=== PATIENT | male | born 1955 | race Caucasian/White ===

== ENCOUNTER 2016-07-23 14:00 | Inpatient (IN) | payer MEDICARE ==
[~2016-07-23] VITALS: Ht 182.9 cm; Wt 93.0 kg
--- NOTE | ~2016-07-23 | OR ---
PATIENT'S NAME: CAILIN CARRASCO [facility] AGE: 61 Y [address] ROOM: [place] [address] LOCATION: GPCU ADMIT DATE: 07/23/2016 OR/Procedure Report DISCHARGE DATE: FAMILY PHYSICIAN: MAXIM HAMPTON MD ATTENDING PHYSICIAN: HERNANDEZ MARTE SURGEON: Kaz Pearson MD ELECTRONIC MASKING SYSTEM OPERATOR: Hailey Berger RN DATE OF PROCEDURE: 07/29/2016 PROCEDURE: Right internal jugular vein, a 12.5-Comoran hemodialysis catheter placement. INDICATION FOR PROCEDURE: Need for hemodialysis secondary to renal failure and glomerulonephritis. PREOPERATIVE DIAGNOSES: 1. Acute on chronic kidney disease. 2. Systemic lupus erythematosus. 3. Type 2 diabetes. 4. Hypertension. POSTOPERATIVE DIAGNOSES: 1. Acute on chronic kidney disease. 2. Systemic lupus erythematosus. 3. Type 2 diabetes. 4. Hypertension. COMPLICATIONS: None noted. ESTIMATED BLOOD LOSS: 10 mL. CONSENT: Informed consent was obtained through a design engineer with Mr. Carrasco. Discussion of risks, benefits, alternatives did occur, the patient stated his understanding through the internal communications specialist and agreed for me to proceed. PROCEDURE IN DETAIL: Utilizing strict neutropenic precautions, the patient was placed in Trendelenburg position. Sterile prep with ChloraPrep x2 to the right neck. Sterile full-body drape, sterile gown, sterile gloves used. Surgical mask and cap worn at all times. Under sterile real-time ultrasound guidance, a 25-gauge needle was used to inject lidocaine subcutaneous tissues of the right neck. Utilizing 16-gauge needle, the right internal jugular vein was cannulated with first attempt under ultrasound guidance, nonpulsatile blood flow, dark blood aspirated, over a wire a 12.5-Comoran hemodialysis catheter was inserted to 16 cm without difficulty. Wire and needle were removed intact. Catheter sutured in place. Sterile occlusive Tegaderm dressing was applied. Stat portable chest x-ray is ordered postprocedure. PATIENT'S NAME: CAILIN CARRASCO [facility] AGE: 61 Y [address] ROOM: [place] [address] LOCATION: GPCU ADMIT DATE: 07/23/2016 OR/Procedure Report DISCHARGE DATE: FAMILY PHYSICIAN: MAXIM HAMPTON MD ATTENDING PHYSICIAN: HERNANDEZ MARTE Mr. Carrasco tolerated the procedure well. MD JUAN ANTUNEZ/fausto /[id number] d: 07/29/16 2240 t: 08/10/16 [facility], OPERATIVE SUMMARY
--- NOTE | ~2016-07-23 | ECHO ---
Transthoracic Echocardiography Report (TTE) Demographics Patient Name CAILIN CARRASCO Date of Study 07/24/2016 Patient Number [id number] Visit Number [id number] Date of 1955 Room Number G6303 Gender Male Number Age 61 year(s) Referring [facility] Food And Beverage Cashier Lexie Bella RDCS, Physician Son RVT Physician Interpreting Amador Martel MD Gambling Monitor Physician Supervising Ordering [facility] Son [place]/MLP Physician Nurse Stress Death Surveys Coder Conclusions Contractility Score Summary Normal Left Ventricular contractility was noted. Summary The estimated left ventricular ejection fraction is 60-65%. Mild concentric left ventricular hypertrophy. Diastolic assessment reveals Grade I diastolic dysfunction. The left atrium is moderately dilated by LA volume index measurement. Small global pericardial effusion. Procedure Type of Study TTE procedure:2D Echocardiogram. Procedure Date Date: 07/24/2016 Start: 09:33 AM Study Location: Inpatient Portable Technical Quality: Adequate visualization Indications:Pericarditis. Appropriate Use Criteria: 9 Patient Status: Routine HR: 98 bpm BP: 161/55 mmHg M-Mode/2D Measurements LV Diastolic Dimension: 4.35 cm LV Systolic Dimension: 2.73 cm LV Septum Diastolic: 1.13 cm LV PW Diastolic: 1.07 cm Cardiac Output: 6.81 l/min LA Dimension: 3.8 cm Post Pericard Effusion: 0.6 cm LVOT: 2.2 cm LVOT VTI: 18.3 cm RV Base: 3.13 cm LV Stroke volume: 69.53 ml RV Length: 7.03 cm TAPSE: 2.47 cm TDI-S': 13.7 cm/s Doppler Measurements AV Peak Velocity: 1.26 m/s MV Peak E-Wave: 0.72 m/s AV Peak Gradient: 6.35 mmHg MV Peak A-Wave: 1.16 m/s AV Mean Gradient: 4 mmHg MV E/A Ratio: 0.62 LVOT Peak Velocity: 1.02 m/s MV P1/2t: 88 msec TR Gradient:27.25 mmHg PV Peak Velocity: 1.42 m/s Estimated RAP:5 mmHg PV Peak Gradient: 8.07 mmHg Estimated RVSP: 32 mmHg Estimated PASP: 32.25 mmHg E' Septal Velocity: 0.06 m/s A' Septal Velocity: 0.13 m/s E' Lateral Velocity: 0.07 m/s A' Lateral Velocity: 0.19 m/s Findings Left Ventricle Mild concentric left ventricular hypertrophy. Diastolic assessment reveals Grade I diastolic dysfunction. Right Ventricle Normal right ventricle structure and function. Left Atrium Normal left atrial size. Right Atrium Normal right atrial size. Mitral Valve Trivial mitral regurgitation by color Doppler. Aortic Valve Normal aortic valve structure and function. Tricuspid Valve Trivial tricuspid regurgitation by color Doppler. Pulmonic Valve Normal pulmonic valve structure and function. Pericardial Effusion Trivial posterior pericardial effusion. Miscellaneous Visualized portions of the aortic root and ascending aorta appear normal in size. Pleural Effusion No evidence of pleural effusion. Contractility Score LV regional wall motion:(0-Non visualized 1-Normal 2-Hypokinesis 3-Akinesis 4-Dyskinesis 5-Aneurysm) Signature dtt: Delonte English (cardio) dtd: 07/24/16 0933 Physician Self Edit
--- NOTE | ~2016-07-23 | HP ---
PATIENT'S NAME: CAILIN CARRASCO [facility] AGE: 61 Y [address] ROOM: [address] [place], [place] [address] LOCATION: [facility] ADMIT DATE: 07/23/2016 History & Physical DISCHARGE DATE: FAMILY PHYSICIAN: PHYSICIAN, UNKNOWN ATTENDING PHYSICIAN: HERNANDEZ MARTE DATE OF SERVICE: CHIEF COMPLAINT: NANCY, intractable nausea, vomiting, and diarrhea. HISTORY OF PRESENT ILLNESS: This is a 61-year-old male with history of lupus in the remote past, chronic kidney disease, diabetes type 2, who presents from [facility] as a transfer after he was admitted there yesterday with complaints of intractable nausea, vomiting, and diarrhea for over 24 hours and was noted to have a creatinine of 4.9 and was subsequently admitted. The patient was treated symptomatically for volume depletion with IV fluids and had a CAT scan of the abdomen done, which was nonspecific for acute findings. The patient upon transfer today had a creatinine of 4.1. The patient is hearing impaired since childhood. He recently moved to [place] from [place] about 3 months ago after he retired. The patient tells me that he is aware of having some type of chronic kidney disease, but does not know specifically what type it was, but he remembers someone telling him about possibly getting a kidney biopsy a few years ago and that is the last he has actually heard of from that standpoint. The patient also reports to me that he was diagnosed with lupus in the upon presentation with what sounds like acute pericarditis, requiring lengthy hospital stay at that time. The patient since then had been on and off prednisone therapy and last time he was on prednisone for treatment was in the . The patient today on my evaluation states that the nausea, vomiting, and diarrhea are better; however, he continues to have chest discomfort on the left side of his chest, it worsened with inspiration. He tells me that symptoms he is feeling right now are similar to when he had his episode of pericarditis at the time of his lupus diagnosis in the . The patient, however, denies shortness of breath, dizziness, or lightheadedness. Denies any fevers, chills, or sick contacts. PAST MEDICAL HISTORY: Type 2 diabetes, chronic kidney disease, history of lupus, and hypertension. SOCIAL HISTORY: The patient moved from [place] to [place] over Thanksgiving last year. Denies any history of alcohol, drug, or tobacco use. FAMILY HISTORY: The patient has history of high blood pressure in both parents. PATIENT'S NAME: CAILIN CARRASCO [facility] AGE: 61 Y [address] ROOM: [address] [place], [place] [address] LOCATION: [facility] ADMIT DATE: 07/23/2016 History & Physical DISCHARGE DATE: FAMILY PHYSICIAN: PHYSICIAN, UNKNOWN ATTENDING PHYSICIAN: HERNANDEZ MARTE REVIEW OF SYSTEMS: A 10-point review of systems was conducted with the help of a video interior design instructor and were all negative except as mentioned in the HPI. PHYSICAL EXAMINATION: VITAL SIGNS: Blood pressure 171/99, pulse 86, respiratory rate 18, and saturating 98% on room air. GENERAL: The patient suffers from deafness, but is awake, alert, and oriented x3. Good spirits and very pleasant. HEAD: Normocephalic and atraumatic. NECK: No JVD. Supple. EENT: Dry mucous membranes. No scleral icterus or conjunctival pallor noted. SKIN: Without lesions or rash. CHEST: Clear to auscultation bilaterally. HEART: S1 and S2. Regular rate and rhythm. ABDOMEN: Soft, nontender, and nondistended. EXTREMITIES: Without edema. NEURO: Grossly nonfocal. SIGNIFICANT LABS: Creatinine 4.1, baseline unknown. ASSESSMENT AND PLAN: 1. Acute kidney injury on chronic kidney disease of unknown stage. The patient known to have a history of lupus and is also diabetic from history, suggestive that that patient has some form of chronic kidney disease. The acute component is perhaps the patient's gastrointestinal symptoms of nausea, vomiting, and diarrhea for the past 2 days. Continue with IV fluids for volume replacement and monitor I's and O's closely and also monitor renal function. I have asked for Nephrology for consultation. The patient seems to have a complicated history of kidney disease in the setting of history of lupus. 2. Chest pain, sharp in nature, left-sided worsened by inspiration. Denies any shortness of breath, but does report that this pain is similar to what he felt back in the when he was diagnosed with pericarditis and lupus shortly following that. At this time, we will get a 12-lead EKG and get an echocardiogram. We will hold off treating with NSAIDs for the pain he has in the setting of acute kidney injury. 3. Type 2 diabetes. We will hold the patient's oral hypoglycemic which include glipizide and metformin. We will use sliding scale insulin and Accu-Cheks at this time. Also working on getting records from care providers in [place]. 4. Hypertension. Continue amlodipine. 5. History of lupus. Has been on prednisone in the past. The last time he was on it, per his report, was back in the . PATIENT'S NAME: CAILIN CARRASCO [facility] AGE: 61 Y [address] ROOM: [place] [address] LOCATION: [facility] ADMIT DATE: 07/23/2016 History & Physical DISCHARGE DATE: FAMILY PHYSICIAN: PHYSICIAN, UNKNOWN ATTENDING PHYSICIAN: HERNANDEZ MARTE 6. Deep venous thrombosis prophylaxis. We will use subcu heparin. HERNANDEZ MARTE MD BG/modl /[id number] D: T: 659 HISTORY & PHYSICAL
--- NOTE | ~2016-07-23 | CON ---
PATIENT'S NAME: CAILIN CARRASCO [facility] AGE: 61 Y [address] ROOM: [address] [place], [place] [address] LOCATION: GPCU ADMIT DATE: 07/23/2016 Consultation DISCHARGE DATE: FAMILY PHYSICIAN: PHYSICIAN, UNKNOWN ATTENDING PHYSICIAN: HERNANDEZ MARTE DATE OF CONSULTATION: 07/23/2016 REFERRING PHYSICIAN: CODY BINGHAM REASON FOR CONSULTATION: NANCY versus NANCY on CKD. HISTORY OF PRESENT ILLNESS: A 61-year-old male patient with history of hypertension, type 2 diabetes, lupus (diagnosed in 1979 with pericarditis), now on no immunosuppressive regimen, recently moved to [place], [place] from [place], [place], admitted to an outside hospital with diarrhea and flu-like symptoms for the last couple of days. Creatinine on admission was 4.9, improved to 4.1 subsequently with IV hydration. The patient was subsequently transferred to our hospital for further management and care. The patient is deaf and dumb, and it is difficult to get adequate history from him. His friend, who was present at the bedside, helped me to communicate. The patient has no other past medical record at this point, however, used to follow at the [facility] in [place]. We are trying to contact them to get a detailed past medical history. However, as far as we know that in 1979, he was diagnosed with lupus after having pericarditis, and he was on immunosuppression medication for long time. More recently, he was on prednisone, but which has been stopped a few years ago. However, when he went to [place], his urinalysis showed 3+ protein and packed RBC, and on further interrogation, he mentioned that there was a plan for kidney biopsy a few years ago; however, he never got it done. He denied any fever, chills, or rigor. Denied any shortness of breath, nausea, or vomiting. He has a chest pain on the left precordial area, which is almost similar to the pain, which he has experienced in 1980s. Currently, he is retired, but his habit is dancing, and he is otherwise physically fit and has no other distress. REVIEW OF SYSTEMS: GENERAL: No fever. No chills or rigor. HEENT: No sore throat. No sinus congestion. CVS: Complained of chest pain on the left precordium. No exertional shortness of breath. No history of palpitation. RESPIRATORY: No shortness of breath. No cough. No wheezing. GENITOURINARY: No pain with urination. No increased frequency. No nocturia. GASTROINTESTINAL: No abdominal pain. No abdominal distention. No nausea or vomiting. NEUROLOGIC: No weakness. No seizures. SKIN: No rash. No itching. ALLERGIES: No seasonal allergy. No hayfever. ENDOCRINE: No heat intolerance. No cold intolerance. PSYCHIATRIC: No sadness. No crying spells. No history of panic attack. PATIENT'S NAME: CAILIN CARRASCO [facility] AGE: 61 Y [address] ROOM: [place] [address] LOCATION: GPCU ADMIT DATE: 07/23/2016 Consultation DISCHARGE DATE: FAMILY PHYSICIAN: PHYSICIAN, UNKNOWN ATTENDING PHYSICIAN: HERNANDEZ MARTE PHYSICAL EXAMINATION: VITAL SIGNS: Blood pressure is 170/90s, pulse 85, respiratory rate 16, temperature 97.8, saturating at 96% on room air. GENERAL: Not in apparent distress. HEAD: Moist mucous membranes. Bilateral PERRLA, EOMI. NECK: No JVD, thyromegaly or lymphadenopathy. CVS: S1 and S2 normal, regular rate and rhythm. No murmur, rub, gallop. CHEST: Bilateral air entry equal. No wheeze or rales. ABDOMEN: Soft, nontender, nondistended. Bowel sounds present. EXTREMITIES: No cyanosis, clubbing, jaundice. No dependent edema. MUSCULOSKELETAL: No limitation of range of motion. SKIN: No pallor, cyanosis, icterus. NEUROLOGIC: Alert, deaf, and dumb. Could communicate via the friend. PAST MEDICAL HISTORY: 1. Hypertension. 2. Type 2 diabetes. 3. Lupus, diagnosed in . 4. Proteinuria and hematuria. PAST SURGICAL HISTORY: Unknown at this point. SOCIAL HISTORY: Retired, nonsmoker, nonalcoholic. No IV drug abuse. Lives in [place], [place] at this point. Recently moved from [place]. FAMILY HISTORY: Unknown at this point. LABORATORY DATA: Creatinine from outside hospital was 4.9, improved to 4.1 as mentioned above after hydration; BUN is 55. Urinalysis shows 3+ protein and packed rbc. Labs here done in our hospital is still pending. We will await for the further results. ASSESSMENT AND PLAN: 1. Acute kidney injury versus acute kidney injury on chronic kidney disease. Although no history of chronic kidney disease or unknown baseline renal function, but plan for possible kidney biopsy, probably the patient has some chronic kidney disease at baseline. We will plan to continue gentle hydration at this point with 1 L of normal saline bolus, followed by 150 mL/h. We will send urinalysis, urine lytes, and urine protein creatinine ratio. Continue conservative management for now. No nephrotoxins including NSAIDs or contrast media. Maintain hemodynamic stability. We will keep the MAP more than 65. PATIENT'S NAME: CAILIN CARRASCO [facility] AGE: 61 Y [address] ROOM: [address] [address] LOCATION: GPCU ADMIT DATE: 07/23/2016 Consultation DISCHARGE DATE: FAMILY PHYSICIAN: PHYSICIAN, UNKNOWN ATTENDING PHYSICIAN: HERNANDEZ MARTE 2. Proteinuria and hematuria. Could be secondary to lupus versus diabetes, although at outside hospital, A1c was less than 6 and has no history of diabetic retinopathy in the past. We are sending serologic tests including LULÚ, dsDNA, anti-Diaz level along with ESR, CRP, and complement levels. We will also check urine microscopy for RBC casts and dysmorphic RBCs. The patient may need a renal biopsy for further diagnosis and confirmation in the next few days. 3. Chest pain. Possible query pericarditis. The patient is not uncomfortable at this point, however, mentioned that his chest pain is similar to what he has experienced in 1980s. We will do an EKG, cardiac enzymes, and echo, and we will defer the management as per the primary team. 4. Type 2 diabetes. The patient was noted to be on metformin, however, with acute kidney injury versus acute kidney injury on chronic kidney disease, we would hold metformin as this agent may cause lactic acidosis with reduced renal clearance. May use insulin. We will defer again to the primary team for further management. 5. Hypertension. BP above the acceptable range, systolic blood pressures often in the 170s. We may restart amlodipine for now; however, we should avoid CLINT, ARB, and Aldactone. The patient appears to be slightly volume depleted. We are hydrating at this point. No diuretic for now. 6. We will order for Ann placement and strict intake and output monitoring, daily standing weight, renal panel, and CBC to be sent now and should be monitored daily in a.m. Thanks for allowing me to participate in this patient's care. We will closely monitor the patient's progress along with you. ABHISEKH MAYRA BINGHAM MD /jaylonl /[id number] d: 07/23/165 t: 07/26/16 1513, CONSULTATION REPORT
--- NOTE | ~2016-07-23 | DS ---
[facility] AGE: 61 Y [address] ROOM: [address] [place], [place] [address] LOCATION: GPCU ADMIT DATE: 07/23/2016 Discharge Summary DISCHARGE DATE: 08/11/2016 FAMILY PHYSICIAN: Suzi Hanley MD ATTENDING PHYSICIAN: Son Blanc PRINCIPAL DISCHARGE DIAGNOSIS: Systemic lupus erythematosus exacerbation. SECONDARY DIAGNOSIS: 1. Rapidly progressive glomerulonephritis, secondary to lupus nephritis, class IV, and diabetic neuropathy. 2. Diabetes mellitus, type 2, poorly-controlled, secondary to steroid therapy. 3. Sjnlnd-rm-bhtigvu disease. 4. Hypertension. 5. Pericardial effusion. 6. Complete deafness, requiring sign bookstore clerk, status post mumps at age 7. CONSULTATIONS: Dr. Garces of Nephrology. PROCEDURE: 1. Tunneled dialysis catheter in the right upper chest on August 09, 2016. 2. Right IJ dialysis catheter, on 07/29/2016. 3. Echocardiogram, 07/24/2016, brief summary of findings:. a. EF estimated at 60% to 65%. b. Mild concentric left ventricular hypertrophy. c. Grade 1 diastolic dysfunction. d. Moderately dilated left atrium. e. Small global pericardial effusion. 4. Left kidney core needle biopsy on 07/25/2016. 5. Plasmapheresis on 08/02/2016 and 08/04/2016:. a. On 08/02/2016, x6 units of FFP. b. On 08/04/2016, 4 units of FFP. BRIEF HISTORY: Mr. Carrasco is a 61-year-old -Tongan gentleman with a history of hypertension, diabetes mellitus type 2, and lupus, which was diagnosed in 1979 with an episode of pericarditis. At the time of admission, he was on no immunosuppressive regimen. His prednisone was stopped a few years ago. He presented to [facility] in [place] with diarrhea and flu-like symptoms over the couple of days and on admission his creatinine was 4.9. He was transferred to [facility] for further evaluation and management. The patient is completely deaf and does not speak. We have used a bookstore clerk via video while he has been here and is working relatively well, also, at times, PATIENT'S NAME: [facility] AGE: 61 Y [address] ROOM: [address] [place], [place] [address] LOCATION: GPCU ADMIT DATE: 07/23/2016 Discharge Summary DISCHARGE DATE: 08/11/2016 FAMILY PHYSICIAN: Suzi Hanley MD ATTENDING PHYSICIAN: Son Blanc he communicates with [employer], and that has worked well. The patient was admitted with acute kidney injury superimposed on chronic kidney disease; although, the baseline renal function has not been apparent. Because of his kidney injury, his oral hypoglycemics were held at the time of admission. His blood pressure was elevated. His home amlodipine was continued, but CLINT, ARB, and Aldactone were avoided. It was determined by his biopsy report that he had RPGN, secondary to lupus nephritis, class IV, with diabetic nephropathy. He was given plasmapheresis as above. He was started on dialysis and had a tunnel cath placed for more permanent dialysis on the . That site is looking good. It is nontender. He is setup for dialysis at [facility] [place], [place] for August [address] Garces will be giving orders for his dialysis, but we have discussed the fact that he wishes no more than 500 mL of fluid to be removed per session. He has also been treated with oral steroids prednisone 80 mg a day. As a result, his diabetes has been poorly controlled with sugars in the 400s 2 days ago. His basal insulin was increased and now is better controlled; so, we are moderating that dose and instructing the patient to take basal insulin daily and sliding scale with meals. He is to avoid his oral hypoglycemics because of ongoing kidney disease. The patient's blood pressure has been better controlled recently, he has the most recent blood pressure 148/80, his heart rate is currently 69, respirations 16, temperature 97.7, and he has been afebrile. His antinuclear antibody was positive with a titer of 1:116 in a homogeneous pattern on August 01, on July 28, his titer was 1:320. The titer was 1:80 on 07/23/2016. He did have a stool test for Hemoccult, which was negative, on 08/01/2016. Other current laboratory data includes a CBC, which showed a white blood cell count of 23.4, hemoglobin 7.9, hematocrit 24, and platelets 156,000. It is thought that his leukocytosis is due to his steroid therapy. Sodium today is 138, potassium 4.3, chloride 104, CO2 28, BUN 39, creatinine 3.0, glucose serum 149, calcium 7.3, phosphorus 2.8, and magnesium 1.9. INSTRUCTIONS AT DISCHARGE: The patient is to be on a Renal and [place] [employer] diet with low carbs. Activity as tolerated. Followup with dialysis as above in August 12, 2016 at noon. He has been instructed to see his primary care provider Suzi Hanley within a week of discharge preferably by Monday of next week on the to review all his meds. He has PATIENT'S NAME: CAILIN CARRASCO [facility] AGE: 61 Y [address] ROOM: [address] [place], [place] [address] LOCATION: GPCU ADMIT DATE: 07/23/2016 Discharge Summary DISCHARGE DATE: 08/11/2016 FAMILY PHYSICIAN: Suzi Hanley MD ATTENDING PHYSICIAN: Son Blanc been instructed to call her if he has any questions or problems with his insulin and if his glucose is greater than 400. He has been instructed not to take his insulin if his glucose is less than 110. He is to keep his tunnel catheter clean and dry. He is to see Dr. Garces on 08/24/2016 at [facility] for Cytoxan infusion. MEDICATIONS AT THE TIME OF DISCHARGE: 1. Amlodipine 10 mg p.o. daily. 2. Artificial Tears both eyes p.r.n. 3. Carvedilol 25 mg p.o. b.i.d. 4. Docusate 100 mg p.o. b.i.d. 5. Aspirin 81 mg p.o. daily with food. 6. NovoLog insulin prandial with meals 7 units and detemir 35 units daily subcutaneous. 7. Nortriptyline 25 mg p.o. t.i.d. 8. Protonix for acid suppression 40 mg p.o. b.i.d. 9. MiraLAX 17 g daily. 10. Pravachol 40 mg p.o. daily. 11. Prednisone 80 mg p.o. daily for his lupus nephritis. 12. Senna 2 tabs at bedtime. 13. Sucralfate 1 g p.o. b.i.d. before meals. 14. Tylenol 650 mg p.o. p.r.n. pain. 15. Cepacol lozenges p.r.n. 16. He is not to take tramadol or his oral hypoglycemics. 17. He will be given scripts for Contour Next strips, Sherman Microlet Lancets, and BD Veronique pen needles. CONDITION AT DISCHARGE: Good. Greater than 40 minutes was spent in preparation of the discharge, giving discharge instructions, and examining the patient. JAN PALACIOS MD LM/fausto /[id number] d: 08/12/16 0429 t: 08/15/16 1425, DISCHARGE SUMMARY
[2016-07-23] MEDS ORDERED: NORVASC10 MG PO (15:06)
[2016-07-23] MEDS ORDERED: ASPIRIN LO-DOSE81 MG PO (15:06)
[2016-07-23] MEDS ORDERED: PAMELOR25 MG PO (15:07)
[2016-07-23] MEDS ORDERED: METFORMIN HCL500 MG PO (15:07)
[2016-07-23] MEDS ORDERED: GLUCOTROL10 MG PO (15:07)
[2016-07-23] MEDS ORDERED: PRAVACHOL40 MG PO (15:08)
[2016-07-23] MEDS ORDERED: TYLENOL325 MG PO (15:08)
--- NOTE | 2016-07-23 17:13 | NUR ---
PATIENT ADMITTED THIS AFTERNOON, FROM [place], [place]. A/O X 3. PATIENT IS DEAF, CAN READ AND WRITE. ROOM MATE AT BEDSIDE ADMITTED RENAL FAILURE.
--- NOTE | 2016-07-23 17:14 | NUR ---
ADMIT NOTE: A 61 YR. OLD MALE. ARRIVED VIA AMBULANCE FROM [place], [place]. WAS OVERNIGHT THERE. A/O X 3. DEAF, CAN READ/WRITE. ADMITTED RENAL FAILURE. C/O PAIN OF LT. SIDE OF ABDOMEN THRU LT SIDE OF BACK. HX: OF DIABETES AND LUPUS. PATIENT HAS BEEN HAVING N/V/DIARRHEA SINCE MONDAY, . BUT, HAS FELT SICK FOR 3 WEEKS.
[2016-07-23 18:59] LABS: BASOPHIL % 0.6 %; EOSINOPHIL # 0.2 K/uL (0.0-0.5); EOSINOPHIL % 2.4 %; HEMATOCRIT 27.1 % (37.0-53.0); HEMOGLOBIN 9.2 g/dL (11.0-16.0); IMMATURE GRANULOCYTE # 0.1 K/uL (0.0-0.3); IMMATURE GRANULOCYTE % 1.4 %; LYMPHOCYTE # 0.7 K/uL (0.8-4.0); LYMPHOCYTE % 11.1 %; MCH 29.4 pg (27.0-34.0); MCHC 33.9 gm/dL (32.0-36.5); MCV 86.6 fl (83.0-98.0); MONOCYTE # 0.5 K/uL (0.0-1.0); MONOCYTE % 8.5 %; MPV 10.1 fl (9.4-12.4); NEUTROPHIL # (ANC) 4.7 K/uL (1.4-9.0); NRBC % 0 /100WBC (0-0.00); PLATELET COUNT 271 K/uL (150-450); RBC 3.13 M/uL (3.50-5.50); RDW-CV 13.2 % (11.9-14.6); WBC 6.2 K/uL (4.0-11.0)
[2016-07-23 19:17] LABS: ANION GAP 15.6 (10.0-19.0); CALCIUM 7.8 mg/dL (8.5-10.5); PHOSPHORUS 3.7 mg/dL (2.5-4.9); POTASSIUM 3.6 mMol/L (3.7-5.1)
[2016-07-23 19:21] LABS: CREATININE 4.2 mg/dL (0.6-1.3)
[2016-07-23 20:07] LABS: BILIRUBIN URINE NEGATIVE (NEGATIVE); BLOOD URINE 150 /UL (NEGATIVE); GLUCOSE URINE 100 mg/dL (NEGATIVE); KETONE URINE NEGATIVE (NEGATIVE); LEUKOCYTES URINE NEGATIVE /UL (NEGATIVE); NITRITE URINE NEGATIVE (NEGATIVE); PROTEIN URINE 500 mg/dL (NEGATIVE); UROBILINOGEN URINE NORMAL (NORMAL)
[2016-07-23 20:15] LABS: COLOR URINE YELLOW (YELLOW); TURBIDITY URINE CLEAR (CLEAR)
[2016-07-23 20:22] LABS: EPITHELIAL URINE 0-2 #/HPF (NEGATIVE)
[2016-07-23 20:23] LABS: BACTERIA URINE RARE (NEGATIVE)
[2016-07-24 04:00] LABS: BASOPHIL % 0.4 %; EOSINOPHIL # 0.2 K/uL (0.0-0.5); EOSINOPHIL % 3.2 %; HEMOGLOBIN 8.6 g/dL (11.0-16.0); IMMATURE GRANULOCYTE # 0.1 K/uL (0.0-0.3); IMMATURE GRANULOCYTE % 1.4 %; LYMPHOCYTE # 0.7 K/uL (0.8-4.0); LYMPHOCYTE % 11.5 %; MCH 28.9 pg (27.0-34.0); MCHC 33.1 gm/dL (32.0-36.5); MCV 87.2 fl (83.0-98.0); MONOCYTE # 0.5 K/uL (0.0-1.0); MONOCYTE % 9.1 %; MPV 10.2 fl (9.4-12.4); NEUTROPHIL # (ANC) 4.2 K/uL (1.4-9.0); NEUTROPHIL % 74.4 %; NRBC % 0 /100WBC (0-0.00); PLATELET COUNT 261 K/uL (150-450); RBC 2.98 M/uL (3.50-5.50); RDW-CV 13.2 % (11.9-14.6); WBC 5.6 K/uL (4.0-11.0)
[2016-07-24 04:19] LABS: ANION GAP 11.4 (10.0-19.0); CALCIUM 7.7 mg/dL (8.5-10.5); PHOSPHORUS 3.5 mg/dL (2.5-4.9); POTASSIUM 3.4 mMol/L (3.7-5.1)
[2016-07-24 04:20] LABS: ALBUMIN 1.9 gm/dL (3.5-5.0); CREATININE 4.2 mg/dL (0.6-1.3)
--- NOTE | 2016-07-24 04:59 | NUR ---
Significant Event: PATIENT IS A/O X3 BUT DEAF. CASEY IN ROOM AND ROOMATE AT BEDSIDE TO TRANSLATE NEEDED. USING PAPER/PEN TO WRITE THINGS WELL. VSS. HR 90-100'S. SBP 160-170'S. AFEBRILE. 02 SATS IN MID 90'S ON RA. C/O PAIN IN ABDOMEN. ULTRAM GIVEN X2 WITH SOME RELIEF. HEAT APPLIED TO AREA. UP WITH SBA TO RESTROOM. KINSEY PLACED THIS SHIFT WITH GREAT URINE OUTPUT. IV TO LEFT FOREARM WITH NS AT 150 ML/HR. Follow up: CONTINUE TO MONITOR KIDNEY FUNCTION. ECHO IN AM.
--- NOTE | 2016-07-24 15:49 | NUR ---
Significant Event: A/O X 3. USES SIGN LANGUAGE AND THE "CASEY". AFEBRILE. SBP 144-164. INITIATED COREG. ALBUMIN IV Q4H. Follow up: PLAN KIDNEY BX TOMORROW[facility] NO OTHER ORDERS. WILL NEED TO STILL GET MEDICAL RECORDS FROM [facility].
[2016-07-25 04:20] LABS: BASOPHIL % 0.2 %; EOSINOPHIL # 0.2 K/uL (0.0-0.5); EOSINOPHIL % 5.3 %; IMMATURE GRANULOCYTE # 0.1 K/uL (0.0-0.3); IMMATURE GRANULOCYTE % 1.2 %; LYMPHOCYTE # 0.6 K/uL (0.8-4.0); LYMPHOCYTE % 15.1 %; MCV 88.8 fl (83.0-98.0); MONOCYTE # 0.4 K/uL (0.0-1.0); MONOCYTE % 10.3 %; NEUTROPHIL # (ANC) 2.8 K/uL (1.4-9.0); NEUTROPHIL % 67.9 %; NRBC % 0 /100WBC (0-0.00); RBC 2.32 M/uL (3.50-5.50); RDW-CV 13.4 % (11.9-14.6); WBC 4.2 K/uL (4.0-11.0)
[2016-07-25 04:21] LABS: HEMATOCRIT 20.6 % (37.0-53.0); HEMOGLOBIN 6.8 g/dL (11.0-16.0); MCH 29.3 pg (27.0-34.0); PLATELET COUNT 191 K/uL (150-450)
[2016-07-25 04:33] LABS: ALBUMIN 2.7 gm/dL (3.5-5.0); ANION GAP 15.9 (10.0-19.0); CALCIUM 7.7 mg/dL (8.5-10.5); PHOSPHORUS 3.3 mg/dL (2.5-4.9); POTASSIUM 3.9 mMol/L (3.7-5.1)
[2016-07-25 04:34] LABS: CREATININE 4.4 mg/dL (0.6-1.3)
--- NOTE | 2016-07-25 05:18 | NUR ---
Significant Event: PATIENT IS A/O X3 BUT DEAF. USED WRITING AND CASEY THIS SHIFT TO COMMUNICATE. VSS. HR 80-90'S. SBP 130-160'S. AFEBRILE. 02 SATS IN MID 90'S ON RA. C/O ABDOMINAL PAIN THROUGHOUT THE SHIFT. ULTRAM GIVEN X1, TYELNOL GIVEN X1 AND ORDERED RECIEVED FOR 1 TIME DOSE OF IVP MORPHINE. KPAD APPLIED TO ABDOMEN. LUNGS CLEAR THROUGHOUT. UP WITH SBA TO RESTROOM. ALSO HAD C/O BLOATING/CONSTIPATION. GAS-X AND BENTYL GIVEN X1 WITH RELIEF. KINSEY INTACT WITH GOOD URINE OUTPUT. IV TO LEFT FOREARM WITH NS AT 100ML/HR AND Q4H ALBUMIN. AM LABS SHOWED HGB TO BE 6.8. PHYSICIAN NOTIFIED AND ORDERED STAT ABDOMINAL XRAY AND H/H RECHECK AT 0800. NPO SINCE MIDNIGHT FOR POSSBILE RENAL BIOPSY. ON ACHS ACCUCHECKS Follow up: CONTINUE TO MONITOR ABDOMINAL PAIN.
[2016-07-25 08:15] LABS: HEMATOCRIT 19.6 % (37.0-53.0)
[2016-07-25 08:19] LABS: HEMOGLOBIN 6.5 g/dL (11.0-16.0)
[2016-07-25 09:31] LABS: PROTIME 10.4 SECONDS (9.6-11.1)
[2016-07-25 10:43] LABS: BASOPHIL % 0.3 %; EOSINOPHIL # 0.2 K/uL (0.0-0.5); EOSINOPHIL % 5.9 %; HEMATOCRIT 20.1 % (37.0-53.0); IMMATURE GRANULOCYTE # 0.1 K/uL (0.0-0.3); IMMATURE GRANULOCYTE % 1.3 %; LYMPHOCYTE # 0.8 K/uL (0.8-4.0); MCH 29.9 pg (27.0-34.0); MCHC 32.8 gm/dL (32.0-36.5); MONOCYTE # 0.3 K/uL (0.0-1.0); MONOCYTE % 9.1 %; MPV 10.4 fl (9.4-12.4); NEUTROPHIL # (ANC) 2.3 K/uL (1.4-9.0); NEUTROPHIL % 62.4 %; NRBC % 0 /100WBC (0-0.00); PLATELET COUNT 201 K/uL (150-450); RBC 2.21 M/uL (3.50-5.50); RDW-CV 13.7 % (11.9-14.6); WBC 3.7 K/uL (4.0-11.0)
[2016-07-25 10:44] LABS: HEMOGLOBIN 6.6 g/dL (11.0-16.0)
--- NOTE | 2016-07-25 13:24 | NUR ---
Introduced self and care management servicse to patient and roommate Aimee. Lives in [place]. Used the ftopia computer for signals officer to communicate with patient. Denies concerns about going home on discharge, denies needs right now. Will follow and assist with dc planning as needs identified.
[2016-07-25 14:28] LABS: HEMOGLOBIN 8.3 g/dL (11.0-16.0)
[2016-07-25 14:29] LABS: HEMATOCRIT 25.3 % (37.0-53.0)
[2016-07-25 15:00] LABS: PROTIME 10.5 SECONDS (9.6-11.1)
--- NOTE | 2016-07-25 16:08 | NUR ---
Significant Event: A/OX 3. DEAF/USES SIGN LANGUAGE/ READS/WRITES. ROOMMATE AT BEDSIDE THIS AFTERNOON. LT. SIDED KIDNEY BX DONE. HAS SMALL DRESSING TO AREA. PATIENT WENT INTO RESP. DISTRESS AT APPROX 1030. INITIATED OXYGEN AND GIVEN IV LASIX. LUNGS COURSE, EXP. WHEEZE. GIVEN 1 UNIT PRBC'S. PATIENT ALSO DEVELOPED A HARSH DRY COUGH. INITIATED CEPECOL COUGH DROPS. PERCOCET 2 TABS AT 1600 FOR PAIN. Follow up: STRICT BEDREST, INCLUDING KEEPING MAIKEL. LEGS STILL. UNTIL 2130. HOURLY URINE SAMPLES AT BEDSIDE X 6 HOURS, CHECKING FOR BLOOD.
[2016-07-25 21:18] LABS: BASOPHIL % 0.3 %; EOSINOPHIL # 0.1 K/uL (0.0-0.5); EOSINOPHIL % 0.7 %; HEMATOCRIT 27.7 % (37.0-53.0); HEMOGLOBIN 9.1 g/dL (11.0-16.0); IMMATURE GRANULOCYTE # 0.1 K/uL (0.0-0.3); IMMATURE GRANULOCYTE % 1.1 %; LYMPHOCYTE # 0.6 K/uL (0.8-4.0); LYMPHOCYTE % 5.4 %; MCHC 32.9 gm/dL (32.0-36.5); MCV 88.2 fl (83.0-98.0); MONOCYTE # 0.5 K/uL (0.0-1.0); MONOCYTE % 4.8 %; MPV 10.1 fl (9.4-12.4); NEUTROPHIL # (ANC) 9.2 K/uL (1.4-9.0); NEUTROPHIL % 87.7 %; NRBC % 0 /100WBC (0-0.00); PLATELET COUNT 228 K/uL (150-450); RDW-CV 14.2 % (11.9-14.6); WBC 10.5 K/uL (4.0-11.0)
[2016-07-25 21:24] LABS: RBC 3.14 M/uL (3.50-5.50)
[2016-07-26 05:09] LABS: BASOPHIL % 0.3 %; EOSINOPHIL # 0.2 K/uL (0.0-0.5); EOSINOPHIL % 1.4 %; HEMATOCRIT 29.2 % (37.0-53.0); HEMOGLOBIN 9.7 g/dL (11.0-16.0); IMMATURE GRANULOCYTE # 0.1 K/uL (0.0-0.3); IMMATURE GRANULOCYTE % 1.3 %; LYMPHOCYTE # 0.7 K/uL (0.8-4.0); LYMPHOCYTE % 6.9 %; MCH 29.2 pg (27.0-34.0); MCHC 33.2 gm/dL (32.0-36.5); MONOCYTE # 0.5 K/uL (0.0-1.0); MONOCYTE % 5.2 %; MPV 10.4 fl (9.4-12.4); NEUTROPHIL # (ANC) 8.8 K/uL (1.4-9.0); NEUTROPHIL % 84.9 %; NRBC % 0 /100WBC (0-0.00); PLATELET COUNT 235 K/uL (150-450); RBC 3.32 M/uL (3.50-5.50); RDW-CV 14.2 % (11.9-14.6); WBC 10.4 K/uL (4.0-11.0)
[2016-07-26 05:24] LABS: ALBUMIN 2.9 gm/dL (3.5-5.0); ANION GAP 17.1 (10.0-19.0); CALCIUM 8.2 mg/dL (8.5-10.5); PHOSPHORUS 4.6 mg/dL (2.5-4.9); POTASSIUM 4.1 mMol/L (3.7-5.1)
--- NOTE | 2016-07-26 05:41 | NUR ---
Significant Event: alert & oriented, speaks citizen of [place] sign language with CASEY in room and roommate. Pt also reads and write to communicate. Pt on 6h bedrest then sat EOB and ambulated up in halls SBA. L puncture site is CDI. Pt c/o L quadrant pain/L chest area with cough. Percocet and tramadol given with relief. Ann intact 1400cc out. H&H called to . hourly samples of urine at BS. SBP 140s. 3L NC, encouraged to cough and deep breathe. Follow up:Cont with plan of care
--- NOTE | 2016-07-26 16:36 | NUR ---
Significant Event: A/Ox3. VSS. 3L NC. IV saline locked in L) forearm and flushes well with no complications. Ann catheter has good urine output at 975 mL, yellow urine. Patient ambulates well in the room with standby assist and tolerated a shower well this morning. Rates pain at 7-8 and has been given percocet to manage. Follow Up: Patient will continue to receive albumin and lasix as scheduled and remain on the 1200 mL fluid restriction.
--- NOTE | 2016-07-27 04:21 | NUR ---
2345: UPON PATIENT ASSESSMENT, PATIENT IS RESTING QUIETLY IN BED WITH 3L O2 PER NC. O2 SAT RANGING FROM 87-89%. O2 PER NC IS INCREASED TO 5L PER NC AND PATIENT IS AT 90%. 0030: PATIENT IS RESTLESS IN ROOM. O2 SAT ON 5L NC IS 74%. RT IS CONTACTED. MASK IS APPLIED AT 10L. O2 SAT. IS 88%. PATIENT'S LUNGS ARE COARSE THROUGHOUT. HR 125, RR 40, BP 157/108. 0040: DR. ZELAYA IS CONTACTED AND IS IN ROOM TO ASSESS PATIENT. ORDERS ARE OBTAINED. RT IS INSTRUCTED TO APPLY A CPAP. 0100: RT IN ROOM TO APPLY CPAP. O2 SAT INCREASES TO 93%. HR 120, BP 172/97. PATIENT COMMUNICATES VIA WHITEBOARD HE DOES HAVE CHEST PAIN. DR. ZELAYA NOTIFIED. ORDERS WRITTEN. 0120: EKG BEING PERFORMED. 0215: CARDIAC ENZYMES AND EKG RESULTS ARE CALLED TO DR. ZELAYA. PATIENT CONTINUES TO COMPLAIN OF CHEST PAIN BUT IS BREATHING MUCH BETTER. FIO2 AT 60% PER BIPAP. ORDERS OBTAINED. 0300: IV SITE INFILTRATES. NEW SITE OBTAINED AND MORPHINE ADMINISTERED FOR CHEST PAIN. 0420: DR. ZELAYA IS IN ROOM TO EVALUATE PATIENT. PATIENT HAS IMPROVED AND IS 100% ON BIPAP AT 60% FIO2. IT IS DECREASED TO 45% FIO2. WILL CONTINUE TO MONITOR.
[2016-07-27 05:35] LABS: BASOPHIL % 0.3 %; EOSINOPHIL # 0.1 K/uL (0.0-0.5); HEMATOCRIT 25.2 % (37.0-53.0); HEMOGLOBIN 8.3 g/dL (11.0-16.0); IMMATURE GRANULOCYTE # 0.1 K/uL (0.0-0.3); LYMPHOCYTE # 0.5 K/uL (0.8-4.0); MCH 29.3 pg (27.0-34.0); MCHC 32.9 gm/dL (32.0-36.5); MONOCYTE # 0.6 K/uL (0.0-1.0); MONOCYTE % 5.3 %; MPV 10.5 fl (9.4-12.4); NEUTROPHIL # (ANC) 9.2 K/uL (1.4-9.0); NEUTROPHIL % 87.4 %; NRBC % 0 /100WBC (0-0.00); PLATELET COUNT 219 K/uL (150-450); RBC 2.83 M/uL (3.50-5.50); WBC 10.5 K/uL (4.0-11.0)
[2016-07-27 05:48] LABS: ALBUMIN 3.1 gm/dL (3.5-5.0); ANION GAP 14.9 (10.0-19.0); PHOSPHORUS 4.4 mg/dL (2.5-4.9); POTASSIUM 3.9 mMol/L (3.7-5.1)
[2016-07-27 05:50] LABS: CREATININE 5.7 mg/dL (0.6-1.3)
--- NOTE | 2016-07-27 06:04 | NUR ---
Significant Event: PATIENT IS DEAF BUT ABLE TO COMMUNICATE WITH SIGN LANGUAGE OR WHITE BOARD. PATIENT'S O2 DEMANDS INCREASED FROM 3L PER NC TO BIPAP 60% FIO2. THIS HAS BEEN DECREASED TO 45% AND PATIENT IS TOLERATING WELL. PATIENT REPORTED CHEST PAIN AT THIS TIME WELL. CARDIAC ENZYMES AND EKG PERFORMED. ENZYMES WILL BE REPEATED AT 0730. MORPHINE ADMINISTERED AT 0300. PATIENT RECEIVED 80MG LASIX IVP AT 0100. UOP WAS 1250ML. Follow up:
--- NOTE | 2016-07-27 17:29 | NUR ---
Significant Event: A/Ox3. Patient is standby assist but remained in bed today. Rates pain from 7-10 and has been managed with percocet and utlram and heat therapy. Patient had a 100.2 temp this morning which was lowered with tylenol. Bipap was taken off this morning and switchd to NC on 5L so he could eat. Patient had a coughing episode and did not tolerate well. Sats dropped to low 70s and patient reported difficulty breathing and heaviness in chest. Bipap was put back on and doctor was notified. A lasix bolus and drip was ordered. Patient has improved and will continue to wean off the bipap mask. Patient had some SVTs on monitor this afternoon and EKG was ordered. Follow up: Will continue with plan of care
[2016-07-27 18:44] LABS: ALBUMIN 3.1 gm/dL (3.5-5.0); CALCIUM 8.5 mg/dL (8.5-10.5); MAGNESIUM 1.9 mg/dL (1.3-2.6); PHOSPHORUS 5.6 mg/dL (2.5-4.9)
[2016-07-27 19:01] LABS: CREATININE 6.3 mg/dL (0.6-1.3)
--- NOTE | 2016-07-28 05:43 | NUR ---
Significant Event: VSS. 3-4L NC to eat/shower, sat >90%, no s/s of distress, replaced bipap. Pt tolerated bipap well. IV lasix gtt running 10mg/hr. IV antibiotics given. Percocet given for pain once.Ann intact. Follow up:Cont with plan of care
[2016-07-28 06:00] LABS: HEMOGLOBIN 8.2 g/dL (11.0-16.0); MCH 28.7 pg (27.0-34.0); MCHC 32.8 gm/dL (32.0-36.5); MCV 87.4 fl (83.0-98.0); MPV 10.3 fl (9.4-12.4); PLATELET COUNT 248 K/uL (150-450); RBC 2.86 M/uL (3.50-5.50); WBC 10.8 K/uL (4.0-11.0)
[2016-07-28 06:21] LABS: ALBUMIN 2.7 gm/dL (3.5-5.0); ANION GAP 16.9 (10.0-19.0); CALCIUM 8.5 mg/dL (8.5-10.5); CREATININE 6.8 mg/dL (0.6-1.3); PHOSPHORUS 5.6 mg/dL (2.5-4.9); POTASSIUM 3.9 mMol/L (3.7-5.1)
[2016-07-28 06:34] LABS: ABSOLUTE NEUTROPHIL CT (ANC) 9.6 K/uL (1.4-9.0); LYMPHOCYTE # 0.9 K/uL (0.8-4.0); LYMPHOCYTE % 8 %; MONOCYTE # 0.2 K/uL (0.0-1.0); SEGMENTED NEUTROPHIL # 9.6 K/uL (1.4-9.0); SEGMENTED NEUTROPHIL % 89 %
[2016-07-28 12:12] LABS: INR - (THERAPEUTIC) 1.1 (0.9-1.1); PROTIME 11.4 SECONDS (9.6-11.1)
[2016-07-28 12:35] LABS: CH50 COMPLEMENT 111 (60-185)
--- NOTE | 2016-07-28 13:52 | NUR ---
A - PT SCREENED D/T LENGTH OF STAY. HT: 182.88 CM, WT: 203#, IBW: 80.9 KG, %IBW: 114%. DEAF, FRIEND IN ROOM HELPED TO INTERVIEW. PT DENIED WEIGHT LOSS BUT WEIGHT GAIN FROM FLUID. GOOD APPETITE USUALLY BUT APPETITE HALF OF REGULAR NOW. HAD KIDNEY BX 07/25, POSSIBLE HD MONDAY IF KIDNEY FUNCTION NOT IMPROVING PER RN. LABS: GLU 310, BUN 55, CREA 6.8, ALB 2.7, PO4 5.6. MEDS: SOLUMEDROL, LASIX, MOD SSI. DIET: RENAL W/ 1500ML FLUID RESTRICTION. INTAKE 71% X3 MEALS NOTED. DISLIKES ORAL SUPPLEMENT. EST NEEDS: [id number] KCAL, 81-97 GRAMS PROTEIN, FLUID NEEDS PER MD. D - INADEQUATE ORAL INTAKE RELATED TO ALTERATION IN APPETITE EVIDENCED BY PATIENT REPORT AND PO 71% X3 MEALS. I - AGREED TO TRY SNACK TID. M/E - GOAL: PATIENT WILL BE ABLE TO TOLERATE >75% OF MEALS AND AT LEAST ONE SNACK PER DAY IN 3-5 DAYS. WILL FOLLOW PO INTAKE, SNACK AND LABS.
--- NOTE | 2016-07-28 17:47 | NUR ---
Significant Event: KIDNEY BIOPSY RESULTS CAME BACK WITH DR BINGHAM ORDERING CYTOXIN IV GIVEN PER DINESH SILVER THIS AFTERNOON. CURRENTLY IN NEUTROPENIC AND CHEMO PRECAUTIONS, MASK AND GLOVES AT ALL TIMES. PIV TO L) POST FA SL'D WITH GOOD BLOOD RETURN. STRICT I/O'S WITH FLUID RESTRICTION 1500ML/24HR, PO AND IV COMBINED. KINSEY TO DD WITH 800ML UOP. NO BM TODAY. PATIENT STATES UNDERSTANDING OF ALL THERAPY AND PLAN FOR HIS CARE. DILAUDID 1MG IVP GIVEN AROUND 1200 TODAY FOR PAIN WITH TOTAL RELIEF NOTED. LASIX GTT DC'D AN BUMEX NOW SCHEDULED. ALBUMIN 25% AND SOLUMEDROL 1000MG ALSO GIVEN IV TODAY. ACHS ACCUCHECKS WITH MILD SSI. Follow up: CONT TO MONITOR. PAIN CONTROL. STRICT I/O, STANDING DAILY WEIGHTS AND FLUID RESTRICTION OF 1500ML/DAY (PO AND IV COMBINED).
[2016-07-29 06:15] LABS: HEMATOCRIT 24.2 % (37.0-53.0); MCH 29.2 pg (27.0-34.0); MCHC 32.2 gm/dL (32.0-36.5); MCV 90.6 fl (83.0-98.0); MPV 10.7 fl (9.4-12.4); PLATELET COUNT 276 K/uL (150-450); RBC 2.67 M/uL (3.50-5.50); RDW-CV 14.3 % (11.9-14.6)
[2016-07-29 06:16] LABS: HEMOGLOBIN 7.8 g/dL (11.0-16.0); WBC 18.6 K/uL (4.0-11.0)
[2016-07-29 06:27] LABS: ALBUMIN 3.3 gm/dL (3.5-5.0); CALCIUM 8.6 mg/dL (8.5-10.5); PHOSPHORUS 6.6 mg/dL (2.5-4.9); POTASSIUM 4.1 mMol/L (3.7-5.1)
[2016-07-29 06:40] LABS: ANION GAP 20.1 (10.0-19.0); CREATININE 7.9 mg/dL (0.6-1.3)
[2016-07-29 06:48] LABS: BANDED NEUTROPHIL # 0.2 K/uL (0.0-0.1); BANDED NEUTROPHILS % 1 %; LYMPHOCYTE # 0.4 K/uL (0.8-4.0); LYMPHOCYTE % 2 %; MONOCYTE # 0.2 K/uL (0.0-1.0); SEGMENTED NEUTROPHIL # 17.9 K/uL (1.4-9.0); SEGMENTED NEUTROPHIL % 96 %
--- NOTE | 2016-07-29 06:57 | NUR ---
Significant Event: Patient is alert/oriented x3. Deaf, but communicates well with Pakistani sign language. He has gotten along well with using whiteboard and marker throughout the night. IVP Bumex and Albumin given x2 last night. Vital signs are stable. Was on 4L O2 until around 2130 when he requested to be put on BiPAP (30% FiO2). Patient continues to complain of pleuritic pain. Dilaudid given x2 and morphine given x2 last night, with relief. Ann had 300 mL out, labs are pending to assess renal function. Strict 1500 mL fluid restriction, including IV fluids. Currently on neutropenic and chemotherapy precautions Follow up: Continue to monitor per plan of care.
--- NOTE | 2016-07-29 17:42 | NUR ---
Significant Event: O2 SATS >905 ON 4L O2 PER NC WITH CRACKLES HEARD THROUGHOUT LUNG RUIZ. OTHER VSS. AFEBRILE. BUMEX DC'D TODAY WITH DIALYSIS PLANNED THIS AFTERNOON WELL PLASMAPHORESIS. DIALYSIS LINE WITH PIGTAIL PLACED TO R) IJ WITH ORDERS PER DR OTILIA JONES NURSES TO USE PIGTAIL. KINSEY TO DD WITH 225ML CLOUDY YELLOW UOP. ACHS ACCUCHECKS WITH SSI. NAUSEA AT LUNCH WITH ZOFRAN GIVEN WITH RELIEF AND DILAUDID LAST GIVEN FOR LEFT SIDE PAIN AROUND 1130. POOR APPETITE. PATIENT CURRENTLY IN DIALYSIS WITH PLAN FOR RUN TOMORROW. Follow up: STRICT I/O. DAILY STANDING WEIGHT. PT/OT ON HOLD FOR NOW. LIMIT VISITORS.
[2016-07-30 04:29] LABS: ALBUMIN 3.7 gm/dL (3.5-5.0); MAGNESIUM 2.2 mg/dL (1.3-2.6); PHOSPHORUS 5.6 mg/dL (2.5-4.9); POTASSIUM 3.9 mMol/L (3.7-5.1)
[2016-07-30 04:32] LABS: ANION GAP 18.9 (10.0-19.0); CREATININE 7.1 mg/dL (0.6-1.3)
[2016-07-30 04:42] LABS: HEMATOCRIT 22.4 % (37.0-53.0); HEMOGLOBIN 7.5 g/dL (11.0-16.0); MCH 29.2 pg (27.0-34.0); MCHC 33.5 gm/dL (32.0-36.5); MCV 87.2 fl (83.0-98.0); PLATELET COUNT 239 K/uL (150-450); RBC 2.57 M/uL (3.50-5.50); RDW-CV 14.2 % (11.9-14.6); WBC 17.4 K/uL (4.0-11.0)
--- NOTE | 2016-07-30 05:32 | NUR ---
Significant Event: Patient alert/oriented x3. Vital signs stable. On 4L O2 and BiPAP at night. Patient reported feeling better after dialysis. 1L taken off. Denied pain throughout the night. Right IJ dialysis line in place with pigtail that is ok to use. Creatinine this AM 7.1, GFR 8. Patient continues to have poor appetite, possibly secondary to Cytoxan. VQ scan report showed low probability for PE. Patient is deaf but communicates well with whiteboard and marker and Martti. Roommate is at bedside and has been very helpful with translating. Follow up: Dialysis again this AM around 0900.
[2016-07-30 05:44] LABS: ABSOLUTE NEUTROPHIL CT (ANC) 15.5 K/uL (1.4-9.0); BANDED NEUTROPHIL # 0.3 K/uL (0.0-0.1); BANDED NEUTROPHILS % 2 %; LYMPHOCYTE # 0.7 K/uL (0.8-4.0); LYMPHOCYTE % 4 %; MONOCYTE # 1.2 K/uL (0.0-1.0); SEGMENTED NEUTROPHIL # 15.1 K/uL (1.4-9.0); SEGMENTED NEUTROPHIL % 87 %
--- NOTE | 2016-07-30 10:30 | NUR ---
D:Patient left for dialysis at 0815 per wheelchair. Wearing gown, gloves, mask.
[2016-07-30 14:38] LABS: CH50 COMPLEMENT 178 (60-185)
--- NOTE | 2016-07-30 17:16 | NUR ---
Significant Event:Patient had dialysis this am, will have Plasmaphoresis tomorrow am. Patient has slept alot this afternoon. Tramadol once for headache. Protonix started today. Continues to have poor appetite. Had 1.6 L taken off in dialysis. Last dose of IV steroids today, will start PO tomorrow. Accuchecks at 0700-365, 8 units SSI; and 1100-226, 2 units SSI. No BM. Marissa to be dc'd. Follow up:Plasmaphoresis tomorrow
--- NOTE | 2016-07-30 17:19 | NUR ---
D:Patient returned to room per wheelchair at 1205. Had 1.6L removed. VSS. Remains on 4L O2. Will have plasma exchange tomorrow.
[2016-07-31 04:48] LABS: ALBUMIN 3.5 gm/dL (3.5-5.0); CALCIUM 8.2 mg/dL (8.5-10.5); CREATININE 5.9 mg/dL (0.6-1.3); MAGNESIUM 2.2 mg/dL (1.3-2.6); PHOSPHORUS 5.4 mg/dL (2.5-4.9)
--- NOTE | 2016-07-31 04:52 | NUR ---
Significant Event: Patient alert and oriented but impaired communications DT Hx of being deaf. Patient able to talk with this nurse on this shift via white erase board. No void since damon DC'd, Bladderscan shows 237 ml in bladder, Dr Paz notified and no new orders recieved. Patient denies discomfort. Tylenol given at approx 2030 for pain with relief noted. Follow up: Plasmaphoresis today
[2016-07-31 04:55] LABS: HEMATOCRIT 23.2 % (37.0-53.0); HEMOGLOBIN 7.8 g/dL (11.0-16.0); MCHC 33.6 gm/dL (32.0-36.5); MCV 86.2 fl (83.0-98.0); MPV 11.4 fl (9.4-12.4); PLATELET COUNT 237 K/uL (150-450); RBC 2.69 M/uL (3.50-5.50); WBC 14.4 K/uL (4.0-11.0)
[2016-07-31 05:55] LABS: ABSOLUTE NEUTROPHIL CT (ANC) 13.1 K/uL (1.4-9.0); LYMPHOCYTE # 0.4 K/uL (0.8-4.0); LYMPHOCYTE % 3 %; MONOCYTE # 0.6 K/uL (0.0-1.0); SEGMENTED NEUTROPHIL # 13.1 K/uL (1.4-9.0); SEGMENTED NEUTROPHIL % 91 %
--- NOTE | 2016-07-31 12:57 | NUR ---
D:Patient went down for Plasmophoresis at 0850 per wheelchair. Returned to room at 1135 per wheelchair. No c/o pain. Up in chair.
--- NOTE | 2016-07-31 16:35 | NUR ---
Significant Event:Patient went to dialysis for plasmaphoresis this am. Tolerated well. Up in chair. Bathed. Appetite a little better today. Started on Carafate, and increased Protonix to BID. Also, started on Levimir 15 units. Accucheck at 0700-368, 8 units; 1100-317, 6 units; Fluid restriction increased to 1500 ml/24 hours. NS infusing at 100 ml/hr for 1 Liter. Follow up:Will have dialysis tomorrow, start between 0730 to 0830.
--- NOTE | 2016-08-01 04:37 | NUR ---
Significant Event: Patient alert and oriented x3. Deaf and no verbal but able to communicat through roommate at bed side and whiteboard as well as jose. Patient to go to dialysis today at approx 0730. Patient denied pain throughout shift. no signs of distress. Follow up: Continue to monitor er POC
[2016-08-01 05:59] LABS: ALBUMIN 3.9 gm/dL (3.5-5.0); ANION GAP 18.8 (10.0-19.0); CALCIUM 8.4 mg/dL (8.5-10.5); CREATININE 6.6 mg/dL (0.6-1.3); MAGNESIUM 2.2 mg/dL (1.3-2.6); POTASSIUM 3.8 mMol/L (3.7-5.1)
[2016-08-01 06:03] LABS: HEMATOCRIT 25.4 % (37.0-53.0); HEMOGLOBIN 8.6 g/dL (11.0-16.0); MCH 29.2 pg (27.0-34.0); MCHC 33.9 gm/dL (32.0-36.5); MCV 86.1 fl (83.0-98.0); MPV 11.5 fl (9.4-12.4); PLATELET COUNT 251 K/uL (150-450); RBC 2.95 M/uL (3.50-5.50); RDW-CV 13.5 % (11.9-14.6)
[2016-08-01 06:08] LABS: WBC 18.3 K/uL (4.0-11.0)
[2016-08-01 06:49] LABS: ABSOLUTE NEUTROPHIL CT (ANC) 16.5 K/uL (1.4-9.0); BANDED NEUTROPHIL # 0.5 K/uL (0.0-0.1); BANDED NEUTROPHILS % 3 %; LYMPHOCYTE # 1.6 K/uL (0.8-4.0); LYMPHOCYTE % 9 %; MONOCYTE # 0.2 K/uL (0.0-1.0); SEGMENTED NEUTROPHIL # 15.9 K/uL (1.4-9.0); SEGMENTED NEUTROPHIL % 87 %
--- NOTE | 2016-08-01 12:55 | NUR ---
1255 Meet patient's friend/landlord in the PCU waiting room per her request. Patient and Aimee have been friends for about 16 years. They both lived in [place]. She moved to [place] and he shortly followed her and is renting a room at her home. She believes he has a son in [place] but they are not close. Also might be some siblings in [place]. He recently went to the [place] [employer] support group. She is aware of a resource for him LINK and I need to call them Monday and speak to a Vinita. She doesn't have their number but stated I can look them up on the computer. Patient had state aid in [place] but has not applied for [place] Medicaid yet. She thinks the one in [place] was called [employer]. Aimee also has a application for low income housing that she thinks will be more appropriate for patient once better. Might need a skilled stay. I asked if [facility] had an freelance interpreter/translator? Aimee said, they said they did but they just had a gal with sign language book that was even ASL. She stated the [place] Social Security office had a computer program they used and may [place] could use too. Aimee is headed home for the night and will return here sometime after 1000. Then will spend the night here Monday night but head back to [place] and will not return until possibly Monday. Care management will continue to follow and will see if we can locate LINK in [facility].
--- NOTE | 2016-08-01 13:29 | NUR ---
A - NUT F/U. DIALYSIS. APPETITE POOR. 1+ EDEMA. GASTRITIS. LABS: ACCUCHECK >200, GLU 259, BUN/CR 80/6.6, PHOS 6.0, WBC 18.3, HGB/HCT 8.6/25.4 MEDS: PROTNOIX, CARAFATE, INSULIN, PREDNISONE, LEVAQUIN, BOWEL/NAUSEA, SSI DIET: RENAL, 1500 ML FLUID. INTAKE: BITES-100%. YOGURT @ L, SF PUDDING @ D NEEDS: [id number] KCAL, 81-97 G PRO D - INADQUATE NUTRIENT INTAKE R/T DECREASED APPETITE AEB INTAKE RECORD. I - GOAL FOR INTAKE > 50% BY NEXT ASSESSMENT. WILL ADD SF PUDDING @ B. M/E - WILL MONITOR INTAKE. F/U IN 3-5 DAYS.
--- NOTE | 2016-08-01 15:50 | NUR ---
Significant Event: PT A/O X3. VSS. ON 1L O2/NC SATS >90%. UP IN ROOM WITH SBA TOLERATES WELL. NO C/O PAIN. TO DIALYSIS THIS AM, 2L REMOVED. AC/HS ACCUCHECKS CONTINUE 1145 WAS 147. CONTINUES IN NEUTROPENIC PRECAUTIONS. CASEY IN ROOM TO ASSIST WITH COMMUNICATION. NO BM SINCE 07/24, ORDER FOR SENNA Q PM AND ALSO A SUPPOSITORY PRN, REFUSES SUPPOSITORY OF RIGHT NOW BUT WILL KEEP ENCOURAGING USE. RESTING COMFORTABLY IN BED OF THIS NOTE. Follow up:
--- NOTE | 2016-08-02 04:45 | NUR ---
Significant Event: Patient up in room ad nallely most of shift. Denies pain and shortness of breath. Patient continues on 1L via NC. XLG BM x 2 noted on this shift. Patient voided while having BM's and was unable to collect for I&O. Hematest order from sent to lab and neg. Patient continues to communicate effectively with whiteboard. HS insulin given per Mild sliding scale. Patient tolerated well. Follow up: Continue to monitor Per POC
[2016-08-02 06:11] LABS: HEMATOCRIT 22.6 % (37.0-53.0); MPV 11.4 fl (9.4-12.4); RBC 2.66 M/uL (3.50-5.50); RDW-CV 13.1 % (11.9-14.6); WBC 14.3 K/uL (4.0-11.0)
[2016-08-02 06:13] LABS: ALBUMIN 3.2 gm/dL (3.5-5.0); ANION GAP 13.8 (10.0-19.0); MAGNESIUM 2.1 mg/dL (1.3-2.6); PHOSPHORUS 4.6 mg/dL (2.5-4.9); POTASSIUM 3.8 mMol/L (3.7-5.1)
[2016-08-02 06:17] LABS: CREATININE 4.5 mg/dL (0.6-1.3)
[2016-08-02 06:20] LABS: HEMOGLOBIN 7.7 g/dL (11.0-16.0); MCH 28.9 pg (27.0-34.0); MCHC 34.1 gm/dL (32.0-36.5); PLATELET COUNT 175 K/uL (150-450)
[2016-08-02 07:07] LABS: ABSOLUTE NEUTROPHIL CT (ANC) 13.4 K/uL (1.4-9.0); BANDED NEUTROPHIL # 0.4 K/uL (0.0-0.1); BANDED NEUTROPHILS % 3 %; LYMPHOCYTE # 0.1 K/uL (0.8-4.0); LYMPHOCYTE % 1 %; MONOCYTE # 0.7 K/uL (0.0-1.0); SEGMENTED NEUTROPHIL % 91 %
--- NOTE | 2016-08-02 09:00 | NUR ---
0900 Made referral to Lo with [employer] on assisting patient with a Medicaid application. She believes since he has Medicare and not of usp age then he must already have disability. She was hoping for a smooth process then. 1205 called [employer] #[phone] but the office is closed 12-1300. 1315 called [employer] and left a message for Vinita inquiring what services they offered and if there would be anything available to assist this patient. 1545 called [employer], transferred to Vinita's phone and it went straight to voicemail, did not leave another message.
--- NOTE | 2016-08-02 20:07 | NUR ---
Significant Event: Alert and oriented. Patient is deaf. Communicates with dry [place] board, Samuel or sign language. SBP 130's & 150's. HR 70's. O2 by nasal cannula at 0.5 L. Neutropenic precautions, door to be shut at all times. Went to plasmapheresis today. They gave 6 units of Fresh Frozen Plasma, 1 bottle of albumin. Will have Hemo dialysis tomorrow morning at 0800. Room mate at bedside helps sign to patient. Right tunneled subclavian cath triple lumen. Daily INR's. SBA to independent in room. Pleasant and cooperative with cares. Follow up:
[2016-08-03 04:03] LABS: ALBUMIN 3.3 gm/dL (3.5-5.0); ANION GAP 15.9 (10.0-19.0); CALCIUM 8.1 mg/dL (8.5-10.5); PHOSPHORUS 4.6 mg/dL (2.5-4.9); POTASSIUM 3.9 mMol/L (3.7-5.1)
[2016-08-03 04:11] LABS: CREATININE 5.2 mg/dL (0.6-1.3)
[2016-08-03 04:18] LABS: MCH 28.7 pg (27.0-34.0); MCHC 33.9 gm/dL (32.0-36.5); MCV 84.6 fl (83.0-98.0); MPV 11.5 fl (9.4-12.4); PLATELET COUNT 193 K/uL (150-450); RBC 2.72 M/uL (3.50-5.50); RDW-CV 12.8 % (11.9-14.6); WBC 14.5 K/uL (4.0-11.0)
[2016-08-03 04:27] LABS: HEMOGLOBIN 7.8 g/dL (11.0-16.0)
--- NOTE | 2016-08-03 04:50 | NUR ---
Significant Event: A/O x3. Afebrile. Denies pain. VSS on RA. SBP 140-160s. LS clear/dim. Rt IJ dialysis line, good blood return (Ok'd for RN to draw blood). BS 322. Up standby assist. Cooperative with cares. Follow up: continue to monitor per plan of care.
[2016-08-03 05:12] LABS: ABSOLUTE NEUTROPHIL CT (ANC) 13.2 K/uL (1.4-9.0); LYMPHOCYTE % 7 %; MONOCYTE # 0.3 K/uL (0.0-1.0); SEGMENTED NEUTROPHIL # 13.2 K/uL (1.4-9.0); SEGMENTED NEUTROPHIL % 91 %
--- NOTE | 2016-08-03 10:40 | NUR ---
Aimee gave me the application for [address] in [place]. Will see if I can assist patient in filling those out. 1430 Introduced self/role to patient and introduced NAKIA Pedro student. Used the CASEY to converse. Patient okay with getting his own place in [place], but very worried that he wants to be in a low crime rate, safe neighborhood. I let him know I was attempting to work with [employer] in [place] and they would assist with further applications. He looked at the application Aimee left and we finished filling that out. I will give that back to Aimee. We talked briefly about dialysis and that might effect where he might want to live. [employer] should be a good resource in finding safe and appropriate housing. Also mentioned a short term rehab stay somewhere might be need. He was okay with this but not aware of this before. He had some dialysis questions which I stated would be best answered by Dr Naik. He was fine with this. I did mention he might here a week. He thought he was maybe going home tomorrow? I stated in huddle this morning they thought he would possibly be here a week longer. He really didn't have any other discharge questions at this time. I also let him know that we were looking into helping him apply for Medicaid. He was happy about that. Will continue to follow.
--- NOTE | 2016-08-03 15:54 | NUR ---
Significant Event: A/Ox3. Patient is deaf communicates with marker board. [id number]. P-80s. Afebrile. Room air. R) IJ dyalysis cath with pigtail that is okay to use for blood draws. Saline locked IV. Up with SBA. Denies pain and SOB. Patient had dyalysis today. Planning plasmaphoresis tomorrow in the AM. Mod BM x1. 200ml of urine output this shift. Pleasant and cooperative with cares.
[2016-08-04 03:50] LABS: ALBUMIN 3.4 gm/dL (3.5-5.0); ANION GAP 15.6 (10.0-19.0); CALCIUM 8.1 mg/dL (8.5-10.5); MAGNESIUM 2.1 mg/dL (1.3-2.6); POTASSIUM 3.6 mMol/L (3.7-5.1)
--- NOTE | 2016-08-04 04:54 | NUR ---
Significant Event: A/O x3. Afebrile. Denies pain. VSS on RA. LS clear/dim. critical blood sugars in 400s, asymptomatic. Gave 32 units of novolog total. SS changed to aggressive scale. Follow up: monitor blood sugars closely.
[2016-08-04 04:56] LABS: HEMATOCRIT 21.8 % (37.0-53.0); MCH 28.9 pg (27.0-34.0); MCHC 33.9 gm/dL (32.0-36.5); MCV 85.2 fl (83.0-98.0); MPV 11.4 fl (9.4-12.4); PLATELET COUNT 197 K/uL (150-450); RBC 2.56 M/uL (3.50-5.50)
[2016-08-04 05:02] LABS: HEMOGLOBIN 7.4 g/dL (11.0-16.0)
[2016-08-04 05:46] LABS: ABSOLUTE NEUTROPHIL CT (ANC) 11.8 K/uL (1.4-9.0); BANDED NEUTROPHIL # 0.1 K/uL (0.0-0.1); BANDED NEUTROPHILS % 1 %; LYMPHOCYTE # 0.5 K/uL (0.8-4.0); LYMPHOCYTE % 4 %; MONOCYTE # 0.7 K/uL (0.0-1.0); SEGMENTED NEUTROPHIL # 11.7 K/uL (1.4-9.0); SEGMENTED NEUTROPHIL % 90 %
--- NOTE | 2016-08-04 10:58 | NUR ---
Patient to dialysis per wheelchair for plasmaphoresis, left at 0915.
--- NOTE | 2016-08-04 12:52 | NUR ---
1250 Left a message on Aimee's phone that Faisal and I completed the application for housing. Does she want to pick that up tomorrow? I could fax it but didn't see a fax number? Also I am leaving early today and starting tomorrow he might have a different customer care representative. Left my call back number.
--- NOTE | 2016-08-04 13:43 | NUR ---
A - NUT F/U. DIALYSIS. PLASMAPHERESIS. 1+ EDEMA. LABS: ACCUCHECK 65-484, K+ 3.6, GLU 129, BUN/CR 54/4.0, ALB 3.4, WBC 13.0, HGB/HCT 7.4/21.8 MEDS: LEVEMIR, SSI, PROTONIX, CARAFATE, PROTONIX, LEVAQUIN, BOWEL/NAUSEA DIET: RENAL, 1500 ML FLUID. INTAKE: 50-100% SF PUDDING BID, YOGURT @ L NEEDS: 6508-6223 KCAL, 81-97 G PRO D - ALTERED NUTRITION RELATED LAB VALUES R/T RENAL DYSFUNCTION AEB BUN/CR 54/4.0. I - GOAL FOR INTAKE TO REMAIN 50-100% FOR DURATION OF STAY. M/E - WILL MONITOR INTAKE, LABS. F/U IN 4-6 DAYS.
--- NOTE | 2016-08-04 19:04 | NUR ---
Significant Event:Patient had plasmaphoresis today. Levimer was held this am d/t blood sugar being 65, daily dose lowered. No c/o pain. Follow up:Dialysis tomorrow
--- NOTE | 2016-08-04 19:11 | NUR ---
Patient returned to room at 1140 per wheelchair.
[2016-08-05 04:01] LABS: ALBUMIN 3.3 gm/dL (3.5-5.0); ANION GAP 13.3 (10.0-19.0); CALCIUM 7.9 mg/dL (8.5-10.5); MAGNESIUM 1.9 mg/dL (1.3-2.6); PHOSPHORUS 3.4 mg/dL (2.5-4.9); POTASSIUM 4.3 mMol/L (3.7-5.1)
[2016-08-05 04:02] LABS: CREATININE 4.5 mg/dL (0.6-1.3)
[2016-08-05 04:33] LABS: HEMATOCRIT 20.3 % (37.0-53.0); MCH 28.5 pg (27.0-34.0); MCHC 33.5 gm/dL (32.0-36.5); MCV 84.9 fl (83.0-98.0); MPV 11.7 fl (9.4-12.4); PLATELET COUNT 202 K/uL (150-450); RBC 2.39 M/uL (3.50-5.50); RDW-CV 12.9 % (11.9-14.6); WBC 13.2 K/uL (4.0-11.0)
[2016-08-05 04:36] LABS: HEMOGLOBIN 6.8 g/dL (11.0-16.0)
[2016-08-05 05:14] LABS: ABSOLUTE NEUTROPHIL CT (ANC) 12.5 K/uL (1.4-9.0); BANDED NEUTROPHIL # 0.3 K/uL (0.0-0.1); BANDED NEUTROPHILS % 2 %; LYMPHOCYTE # 0.4 K/uL (0.8-4.0); LYMPHOCYTE % 3 %; MONOCYTE # 0.3 K/uL (0.0-1.0); SEGMENTED NEUTROPHIL # 12.3 K/uL (1.4-9.0); SEGMENTED NEUTROPHIL % 93 %
--- NOTE | 2016-08-05 06:04 | NUR ---
significant event: A/O x 3. VSS up in room with minimal assist. No c/o pain throughout night. HBG 6.8 this am called orders to transfuse 1 unit PRBC's now. Will have dialysis today.
--- NOTE | 2016-08-05 16:04 | NUR ---
D:Patient left for dialysis at 0820 per wheelchair. Returned at 1330 per wheelchair. Report recieved from dialysis, no fluid removed with dialysis. Will not do dialysis till Monday, no more plasma exchanges. Patient took lunch in chair, and then returned to bed. No c/o pain.
--- NOTE | 2016-08-05 17:21 | NUR ---
Significant Event:Patient had dialysis today, they didn't remove any fluid. Will not have any dialysis over weekend, will see how labs look on Monday. No more plasmaphoresis. Remains in Neutropenic Precautions. Appetite good. Accucheck at 0700-205, recieved 6 units SSI; at 1330 after dialysis-122, no SSI, and at 1700-306, will recieve soome SSI. No c/o pain. Reports that he voided once, but didn't measure it. Follow up:Monitor labs over the weekend.
[2016-08-06 03:58] LABS: ALBUMIN 3.1 gm/dL (3.5-5.0); ANION GAP 14.3 (10.0-19.0); MAGNESIUM 1.9 mg/dL (1.3-2.6); POTASSIUM 4.3 mMol/L (3.7-5.1)
[2016-08-06 04:10] LABS: CALCIUM 7.4 mg/dL (8.5-10.5)
[2016-08-06 04:13] LABS: HEMATOCRIT 23.9 % (37.0-53.0); HEMOGLOBIN 8.2 g/dL (11.0-16.0); MCH 28.7 pg (27.0-34.0); MCHC 34.3 gm/dL (32.0-36.5); MCV 83.6 fl (83.0-98.0); MPV 11.3 fl (9.4-12.4); PLATELET COUNT 222 K/uL (150-450); RBC 2.86 M/uL (3.50-5.50); RDW-CV 13.1 % (11.9-14.6); WBC 15.9 K/uL (4.0-11.0)
[2016-08-06 04:36] LABS: ABSOLUTE NEUTROPHIL CT (ANC) 14.2 K/uL (1.4-9.0); BANDED NEUTROPHIL # 0.3 K/uL (0.0-0.1); BANDED NEUTROPHILS % 2 %; LYMPHOCYTE % 0 %; MONOCYTE # 1.1 K/uL (0.0-1.0); SEGMENTED NEUTROPHIL # 13.8 K/uL (1.4-9.0); SEGMENTED NEUTROPHIL % 87 %
--- NOTE | 2016-08-06 04:53 | NUR ---
Significant Event: Patient is alert/oriented x3. Communicates well with whiteboard and marker. Vital signs stable. Continues on room air. Denies any pain. Creatinine this AM is 3. Right jugular dialysis catheter in place, OK to use pigtail. Follow up: Monitoring renal function labs throughout weekend. No dialysis this weekend.
[2016-08-06 11:10] LABS: BILIRUBIN URINE NEGATIVE (NEGATIVE); BLOOD URINE 150 /UL (NEGATIVE); COLOR URINE YELLOW (YELLOW); GLUCOSE URINE 1000 mg/dL (NEGATIVE); KETONE URINE NEGATIVE (NEGATIVE); LEUKOCYTES URINE NEGATIVE /UL (NEGATIVE); NITRITE URINE NEGATIVE (NEGATIVE); PROTEIN URINE 500 mg/dL (NEGATIVE); SPEC GRAVITY URINE 1.015 (1.003-1.035); TURBIDITY URINE CLEAR (CLEAR); UROBILINOGEN URINE NORMAL (NORMAL)
[2016-08-06 11:30] LABS: AMORPHOUS URINE 1+ (NEGATIVE); BACTERIA URINE RARE (NEGATIVE); EPITHELIAL URINE RARE #/HPF (NEGATIVE); MUCUS URINE 1+ (NEGATIVE); RBC URINE 50-100 #/HPF (NEGATIVE); WBC URINE NEGATIVE #/HPF (NEGATIVE); YEAST URINE MODERATE (NEGATIVE)
--- NOTE | 2016-08-06 18:17 | NUR ---
Significant Event: Alert/oriented x 3. Deaf, uses whiteboard or Maarti to communicate. Vitals stable. Room air. Denies pain. Aggressive sliding scale insulin, coverage needed at each meal. Dialysis catheter with pigtail to right jugular, intact, patent. Saline lock to right forearm patent. Independent in room. Voids per urinal; accurate I&O. Renal diet with 1500 ml fluid restriction. Follow up: Monitor labs.
[2016-08-07 03:46] LABS: ALBUMIN 2.9 gm/dL (3.5-5.0); ANION GAP 14.1 (10.0-19.0); CALCIUM 7.6 mg/dL (8.5-10.5); CREATININE 3.8 mg/dL (0.6-1.3); PHOSPHORUS 3.2 mg/dL (2.5-4.9); POTASSIUM 4.1 mMol/L (3.7-5.1)
[2016-08-07 03:53] LABS: HEMATOCRIT 23.5 % (37.0-53.0); HEMOGLOBIN 8.1 g/dL (11.0-16.0); MCH 28.9 pg (27.0-34.0); MCHC 34.5 gm/dL (32.0-36.5); MCV 83.9 fl (83.0-98.0); PLATELET COUNT 226 K/uL (150-450); RDW-CV 13.3 % (11.9-14.6); WBC 13.6 K/uL (4.0-11.0)
--- NOTE | 2016-08-07 04:46 | NUR ---
Significant Event: Follow up: Patient A&Ox3. Deaf. Communicates with whiteboard and [employer]. VSS and con't on RA. R jugular HD catheter remains in place with pigtail and great draw back. Cr this AM was 3.8, up from yesterday's 3.0. Magnesium was 2.0. WBC slightly elevated at 13.6. Continue to monitor renal function with no HD. HD will resume // schedule.
[2016-08-07 05:16] LABS: ABSOLUTE NEUTROPHIL CT (ANC) 12.2 K/uL (1.4-9.0); BANDED NEUTROPHIL # 0.1 K/uL (0.0-0.1); BANDED NEUTROPHILS % 1 %; LYMPHOCYTE # 0.3 K/uL (0.8-4.0); LYMPHOCYTE % 2 %; MONOCYTE # 1.1 K/uL (0.0-1.0); SEGMENTED NEUTROPHIL # 12.1 K/uL (1.4-9.0); SEGMENTED NEUTROPHIL % 89 %
--- NOTE | 2016-08-07 15:26 | NUR ---
Significant Event: A/Ox3. Deaf, uses marker board to communicate needs. [id number]. P-60-70s. Afebrile. Room air. R) dyalysis non tunneled cath with pig tail ok to use. Tunneled catheter will be placed after dyalysis tomorrow. Patient denies pain and SOB. Up ad nallely in room.
[2016-08-08 04:42] LABS: ALBUMIN 2.9 gm/dL (3.5-5.0); ANION GAP 15.3 (10.0-19.0); CALCIUM 7.9 mg/dL (8.5-10.5); MAGNESIUM 2.1 mg/dL (1.3-2.6); PHOSPHORUS 3.6 mg/dL (2.5-4.9); POTASSIUM 4.3 mMol/L (3.7-5.1)
[2016-08-08 04:45] LABS: CREATININE 4.4 mg/dL (0.6-1.3)
[2016-08-08 04:48] LABS: HEMATOCRIT 23.7 % (37.0-53.0); HEMOGLOBIN 8.1 g/dL (11.0-16.0); MCH 29.2 pg (27.0-34.0); MCHC 34.2 gm/dL (32.0-36.5); MCV 85.6 fl (83.0-98.0); PLATELET COUNT 234 K/uL (150-450); RBC 2.77 M/uL (3.50-5.50); RDW-CV 13.2 % (11.9-14.6)
[2016-08-08 04:49] LABS: INR - (THERAPEUTIC) 1.1 (0.9-1.1); PROTIME 11.4 SECONDS (9.6-11.1); WBC 19.7 K/uL (4.0-11.0)
--- NOTE | 2016-08-08 05:17 | NUR ---
Significnat event: Patient A/O x 3. Use brianda when appropriate as patient is deaf. He also is able to communicate with a dry erase board very well. will have dialysis today then go for a tunneled dialysis cath after. Up in room as nallely no C/O pain all VSS.
[2016-08-08 05:19] LABS: ABSOLUTE NEUTROPHIL CT (ANC) 17.9 K/uL (1.4-9.0); BANDED NEUTROPHIL # 0.2 K/uL (0.0-0.1); BANDED NEUTROPHILS % 1 %; LYMPHOCYTE # 0.8 K/uL (0.8-4.0); LYMPHOCYTE % 4 %; MONOCYTE # 0.6 K/uL (0.0-1.0); SEGMENTED NEUTROPHIL # 17.7 K/uL (1.4-9.0); SEGMENTED NEUTROPHIL % 90 %
--- NOTE | 2016-08-08 10:48 | NUR ---
A - NUT F/U. DIALYSIS MWF. 1+ EDEMA. EATING WELL. LABS: ACCUCHECK WNL->300, GLU 199, BUN/CR 81/4.4, ALB 2.9, WBC 19.7, HGB/HCT 8.1/23.7 MEDS: LEVEMIR, SSI, PROTONIX, PREDNISONE, BOWEL/NAUSEA DIET: NPO. WAS RENAL. INTAKE: 50-100% SF PUDDING BID, YOGURT @ L. NEEDS: 4223-0594 KCAL, 81-97 G PRO D - NO NUTRITION RELATED DIAGNOSIS IDENTIFIED AT THIS TIME. I - GOAL FOR INTAKE TO REMAIN 50-100% FOR DURATION OF STAY. M/E - WILL ASSIST NEEDED.
--- NOTE | 2016-08-08 11:15 | NUR ---
D:Patient left for dialysis per wheelchair at 0825.
--- NOTE | 2016-08-08 12:27 | NUR ---
Received call from September in Dialysis, pt wants to go to [facility] for [facility]. She will start referral to [facility] and give them my number to followup. Received call from admissions at [facility]. Will fax them last 2 dialysis run sheets as requested and she reports they can start dialysis at [place] on Monday at 3pm on Monday if discharged before then. Will normally be a 4:15pm time on MWF. [facility] admission phone [phone] and fax [phone]. In dialysis now. Talked with Darcy and then Alexia.
--- NOTE | 2016-08-08 14:47 | NUR ---
CONSULT RECEIVED FOR DIABETIC RENAL DIET INSTRUCTION. WILL PROVIDE ED PRIOR TO DC.
--- NOTE | 2016-08-08 17:36 | NUR ---
D:Patient returned from dialysis, report called at 1340. Patient has been up in chair. Eating well. Had been NPO. Unable to do tunnelled line today for dialysis. Will do in the am.
--- NOTE | 2016-08-08 17:44 | NUR ---
Significant Event:Patient had dialysis today, took off 1 L. Didn't do tunnelled dialysis catheter, so will be NPO tonight and do in the morning. Heparin on hold tonight and in the am. Got 15 units Levimer today d/t NPO status. Did eat a later lunch at 1345. Accucheck this am- 220, and 1340-126. No SSI. Will get some for 1700 accucheck of 319. No c/o pain. In good spirits. Follow up:Tunnelled cath in am
[2016-08-09 04:06] LABS: HEMATOCRIT 23.6 % (37.0-53.0); MCH 29.2 pg (27.0-34.0); MCHC 33.9 gm/dL (32.0-36.5); MCV 86.1 fl (83.0-98.0); MPV 10.3 fl (9.4-12.4); RBC 2.74 M/uL (3.50-5.50); RDW-CV 13.6 % (11.9-14.6)
[2016-08-09 04:08] LABS: PLATELET COUNT 176 K/uL (150-450); WBC 18.3 K/uL (4.0-11.0)
[2016-08-09 04:10] LABS: INR - (THERAPEUTIC) 1.1 (0.9-1.1); PROTIME 11.1 SECONDS (9.6-11.1)
[2016-08-09 05:05] LABS: ABSOLUTE NEUTROPHIL CT (ANC) 17.4 K/uL (1.4-9.0); BANDED NEUTROPHIL # 0.5 K/uL (0.0-0.1); BANDED NEUTROPHILS % 3 %; LYMPHOCYTE # 0.2 K/uL (0.8-4.0); LYMPHOCYTE % 1 %; MONOCYTE # 0.2 K/uL (0.0-1.0); SEGMENTED NEUTROPHIL # 16.8 K/uL (1.4-9.0); SEGMENTED NEUTROPHIL % 92 %
--- NOTE | 2016-08-09 05:11 | NUR ---
Significant Event: A/0X3. USED THE WHITE BOARD AND MARRTI TO COMMUNICATE WITH PATIENT. RESTED IN BED ALL OF SHIFT. UP INDEPENDENTLY IN ROOM. TURNS SELF. AFEBRILE. VSS ON RA. DENIES PAIN. IV TO R) HAND SL. DIAYLSIS CATHER TO R) IJ WITH PIGTAIL SL. FLUSHES WITH GOOD BLOOD RETURN. BEEN NPO SINCE MIDNIGHT FOR TUNNELED DIALYSIS CATHETER THIS AM. PERMITS SIGNED AND ON CHART. VOIDED X1. NO BM THIS SHIFT. POSSIBLY D/C? Follow up: CONTINUE WITH PLAN OF CARE.
--- NOTE | 2016-08-09 11:12 | NUR ---
Received call from Diamante at [facility] in [place], if pt dc today have him come in for dialysis at 0430 tomorrow. Reviewed chart and will get dialysis here tomorrow and Cytoxin, not ready for dc today or tomorrow, getting tunnelled dialysis catheter today. Called Radha at [facility] in [place] back [phone] and let her know, she said she would put him down for Monday and have him come in at noon. We will let patient know. Should be receiving acceptance letter faxed to us.
--- NOTE | 2016-08-09 15:40 | NUR ---
Got a call from Henny from [facility] in [place]. She just needed Aimee's number so she can assist with finding housing. Gave her Aimee's number.
--- NOTE | 2016-08-09 15:56 | NUR ---
Received schedule letter from [facility] with pt outpt dialysis schedule on it, visited patient and with help from curriculum designer via [employer], gave it to him and explained to him his first outpt dialysis appt is set up on Saturday 08/12 at noon. He voices understanding. Let him know if physician doesn't think he is ready for discharge yet we will reschedule that. He voices understanding. Answered his questions. Gave him copy of letter and put copy on chart. Zinc Chloride Operator will follow.
--- NOTE | 2016-08-09 17:04 | NUR ---
Significant Event: Patient had tunneled dialysis line placed today, right subclavian. Was NPO till 1500. Held insulin till 1500, got 34 units of Levimer, 6 units of Novolog. Aggressive scale. No complaints of pain. Had 120 in and 450 out during shift. BP in 130-150s. Hr in 60-70s. Follow up: Monitor tunneled line. Continue per plan of care.
[2016-08-10 04:10] LABS: HEMATOCRIT 23.6 % (37.0-53.0); HEMOGLOBIN 7.8 g/dL (11.0-16.0); MCHC 33.1 gm/dL (32.0-36.5); MCV 87.7 fl (83.0-98.0); MPV 10.5 fl (9.4-12.4); PLATELET COUNT 168 K/uL (150-450); RBC 2.69 M/uL (3.50-5.50); RDW-CV 13.7 % (11.9-14.6); WBC 23.4 K/uL (4.0-11.0)
[2016-08-10 04:31] LABS: ALBUMIN 2.7 gm/dL (3.5-5.0); ANION GAP 15.7 (10.0-19.0); CALCIUM 7.5 mg/dL (8.5-10.5); MAGNESIUM 2.1 mg/dL (1.3-2.6); PHOSPHORUS 3.4 mg/dL (2.5-4.9); POTASSIUM 4.7 mMol/L (3.7-5.1)
[2016-08-10 04:38] LABS: CREATININE 4.2 mg/dL (0.6-1.3)
[2016-08-10 05:02] LABS: ABSOLUTE NEUTROPHIL CT (ANC) 22.7 K/uL (1.4-9.0); BANDED NEUTROPHIL # 0.7 K/uL (0.0-0.1); BANDED NEUTROPHILS % 3 %; LYMPHOCYTE # 0.2 K/uL (0.8-4.0); LYMPHOCYTE % 1 %; SEGMENTED NEUTROPHIL % 94 %
--- NOTE | 2016-08-10 05:03 | NUR ---
Significant Event: A/0X3. RESTED IN BED ALL OF SHIFT. UP AB INDRA IN ROOM. USED WHITE BOARDS TO COMMUNICATE WTIH PATIENT. AFEBRILE. VSS ON RA. DILUADID GIVEN X2. ULTRAM X1 FOR PAIN IN THE NEW TUNNELED CATHETER INSERTION SITE. PATIENT WAS ABLE TO FIND RELIF AND REST COMFORTALY THROUGHOUT THE NIGHT. IV TO R) WRIST SL. DIALYSIS CATHETER TO R) SUBCLAVIAN SL. VOIDED X1. NO BM THIS SHIFT. BLOOD SUAGR AT 2100 WAS 469. CALLED DOCTOR 20 UNITS GIVEN. RECHECK WAS 415 ANOTHER 20 UNITS GIVEN. RECHECK WAS 341. 10 UNITS GIVEN. ALSO CHANGED HIS AM DOSE OF LEVEMIR TO 45 UNITS. Follow up: CONTINUE WITH PLAN OF CARE.
--- NOTE | 2016-08-10 11:00 | NUR ---
Patient was off the floor at this time for dialysis and could not be assessed. Will assess when patient returns to the floor.
--- NOTE | 2016-08-10 17:09 | NUR ---
Significat Event: Patient uses whiteboard and Claudia to communicate. VSS on RA. Pain med given before dialysis for pain 6/10 in dialysis line area. Had dialysis this morning, took 800ml off. Has reported no voids this shift with 240 ml in. Had a chemo dose this afternoon given by [facility] nurse. ACCU in the 100s throughout the day. Has Levemir 45 unit dose and Novolog 7 unit dose scheduled. Also has Agressive SSI. He is feeling well and resting in bed. Follow up: Plans to D/C tomorrow. Dialysis set up for MWF in [place], [place].
--- NOTE | 2016-08-10 18:11 | NUR ---
I HAVE READ AND AGREE WITH CHARTING BY Deisy LOCK STUDENT NURSE
[2016-08-11 05:54] LABS: HEMOGLOBIN 7.9 g/dL (11.0-16.0); MCH 29.3 pg (27.0-34.0); MCHC 32.9 gm/dL (32.0-36.5); MCV 88.9 fl (83.0-98.0); MPV 10.5 fl (9.4-12.4); PLATELET COUNT 156 K/uL (150-450); RDW-CV 14.4 % (11.9-14.6); WBC 23.4 K/uL (4.0-11.0)
[2016-08-11 06:10] LABS: ALBUMIN 2.5 gm/dL (3.5-5.0); ANION GAP 10.3 (10.0-19.0); MAGNESIUM 1.9 mg/dL (1.3-2.6); PHOSPHORUS 2.8 mg/dL (2.5-4.9); POTASSIUM 4.3 mMol/L (3.7-5.1)
[2016-08-11 06:11] LABS: CALCIUM 7.2 mg/dL (8.5-10.5)
--- NOTE | 2016-08-11 06:13 | NUR ---
Significant Event: Sarah mallory and Claudia used for communication. A&Ox3, VSS on room air. 1500ml fluid restrict. Daily standing wt. Denies pain. Dialysis cath to right subclav intact. PIV to left forearm with no complications, SL. Up in room independently. 250ml of urine out this shift. No BM. Patient states he feels constipated. Refused suppository at this time. ACHS, carb count with meals. Agressive SSI. Follow up: D/C to home today
[2016-08-11 06:43] LABS: ABSOLUTE NEUTROPHIL CT (ANC) 20.4 K/uL (1.4-9.0); LYMPHOCYTE # 0.5 K/uL (0.8-4.0); LYMPHOCYTE % 2 %; MONOCYTE # 2.1 K/uL (0.0-1.0); SEGMENTED NEUTROPHIL # 20.4 K/uL (1.4-9.0); SEGMENTED NEUTROPHIL % 87 %
--- NOTE | 2016-08-11 14:28 | NUR ---
Diabetes consult: Patient is being discharged to home today and is new to insulin therapy. Education was provided with use of the [employer] Sign language interpretor and the patient's roommate. The patient was given a Contour Next glucometer and 20 test strips for home. He was instructed on it's use. He was encouraged to test blood sugars four times daily. The patient was hesitant to test this much as he reports his fingers already hurt. The patient was informed that he needed to test at least before meals (3 times a day) and whenever he has s/s of hyper or hypoglycemia. The patient tested his blood sugar with the machine and a random glucose of 115 was returned. The patient will be going home on Levemir 35 units every morning and Novolog 7 units with meals. The patient reports he typically eats two meals a day, omitting breakfast. The patient was encouraged to eat three times a day so he does not miss taking his 7 unit prandial dose. The patient was instructed on the use of the insulin pen. He was able to demonstrate use of the pen. Sick day guidelines as well as treatment of hyper and hypoglycemia were discussed. The patient was encouraged to take his glucometer to his follow up appointment with his PCP for a blood sugar review. Patient indicated understanding of instructions.
[2016-08-11] MEDS ORDERED: ARTIFICIAL TEAR15 ML OPHTH (15:15)
[2016-08-11] MEDS ORDERED: COREG25 MG PO (15:16)
[2016-08-11] MEDS ORDERED: COLACE100 MG PO (15:17)
[2016-08-11] MEDS ORDERED: NOVOLOG FL100 UNIT/1 SUB-Q (15:21)
[2016-08-11] MEDS ORDERED: LEVEMIR FL100 UNIT/1 SUB-Q (15:22)
[2016-08-11] MEDS ORDERED: PROTONIX40 MG PO (15:26)
[2016-08-11] MEDS ORDERED: MIRALAX17 GM PO (15:27)
[2016-08-11] MEDS ORDERED: DELTASONE20 MG PO (15:28)
[2016-08-11] MEDS ORDERED: SENNA8.6 MG PO (15:31)
[2016-08-11] MEDS ORDERED: CARAFATE1 GM PO (15:32)
--- NOTE | 2016-08-11 15:33 | NUR ---
Met with patient to discuss his renal/diabetic diet. Reviewed basic carb counting and label reading. Discussed his fluid restriction. Advised him that he will be meeting with a dietitian at his renal visits in [place]. Provided literature on carb counting and renal diets. He will need further outpatient education.
[2016-08-11] MEDS ORDERED: CEPASTAT1 LOZ PO (15:34)
--- NOTE | 2016-08-11 16:27 | NUR ---
D:Patient had diabetic education from Day, and dietary into see patient. Patient had diabetic management book. Patient bernadette up noon insulin and injected himself with insulin. His friend didn't want to learn how to up or give insulin. Using the Claudia interpeter, did discharge instructions- talking about follow-up visits and medications, and dialysis. Patient verbelized understanding, friend was in room, but did ask many questions or participate in the actual discharge instructions, patient asked some questions. Have personal belongings packed and discharge instructions. Discharged to [facility] to return home, released to her per wheelchair at [facility] Entrance at 1605.
== END 2016-08-11 16:05 | disposition disaster alternative care site (69) | DRG 545 ==
LOC: GPCU 14:00
PROVIDERS: Internal Medicine; Internal Medicine Nephrology; ADMIT Internal Medicine
PROC: 0TB13ZX Excision of Left Kidney, Percutaneous Approach, Diagnostic (ICD-10-PCS; 2016-07-25)
PROC: 30233N1 Transfusion of Nonautologous Red Blood Cells into Peripheral Vein, Percutaneous Approach (ICD-10-PCS; 2016-07-25)
PROC: B548ZZA Ultrasonography of Superior Vena Cava, Guidance (ICD-10-PCS; principal; 2016-07-29)
PROC: 02HV33Z Insertion of Infusion Device into Superior Vena Cava, Percutaneous Approach (ICD-10-PCS; principal; 2016-07-29)
PROC: 5A1D60Z (ICD-10-PCS; 2016-07-29)
PROC: 6A550Z3 Pheresis of Plasma, Single (ICD-10-PCS; 2016-07-29)
PROC: 30233K1 Transfusion of Nonautologous Frozen Plasma into Peripheral Vein, Percutaneous Approach (ICD-10-PCS; 2016-08-02)
PROC: 6A550Z3 Pheresis of Plasma, Single (ICD-10-PCS; 2016-08-02)
PROC: 30233K1 Transfusion of Nonautologous Frozen Plasma into Peripheral Vein, Percutaneous Approach (ICD-10-PCS; 2016-08-04)
PROC: 6A550Z3 Pheresis of Plasma, Single (ICD-10-PCS; 2016-08-04)
PROC: 30233N1 Transfusion of Nonautologous Red Blood Cells into Peripheral Vein, Percutaneous Approach (ICD-10-PCS; 2016-08-05)
PROC: B2141ZZ Fluoroscopy of Right Heart using Low Osmolar Contrast (ICD-10-PCS; 2016-08-09)
PROC: 02H633Z Insertion of Infusion Device into Right Atrium, Percutaneous Approach (ICD-10-PCS; 2016-08-09)
DX: M32.14 Glomerular disease in systemic lupus erythematosus (principal); I50.33 Acute on chronic diastolic (congestive) heart failure; J96.01 Acute respiratory failure with hypoxia; I47.2 Ventricular tachycardia; N17.9 Acute kidney failure, unspecified; N18.5 Chronic kidney disease, stage 5; J18.9 Pneumonia, unspecified organism; N01.8 Rapidly progressive nephritic syndrome with other morphologic changes; I31.3 Pericardial effusion (noninflammatory); E11.21 Type 2 diabetes mellitus with diabetic nephropathy; I13.0 Hypertensive heart and chronic kidney disease with heart failure and stage 1 through stage 4 chronic kidney disease, or unspecified chronic kidney disease; E11.65 Type 2 diabetes mellitus with hyperglycemia; Z79.84 Long term (current) use of oral hypoglycemic drugs; D63.1 Anemia in chronic kidney disease; H91.93 Unspecified hearing loss, bilateral; Z79.82 Long term (current) use of aspirin; E88.09 Other disorders of plasma-protein metabolism, not elsewhere classified; K59.00 Constipation, unspecified; R31.29 Other microscopic hematuria; K29.60 Other gastritis without bleeding; T38.0X5A Adverse effect of glucocorticoids and synthetic analogues, initial encounter; D72.829 Elevated white blood cell count, unspecified
CPT/HCPCS: A9539; A9540; C1750; C9113; J0171; J0456; J0610; J0692; J1170; J1200; J1642; J1644; J1720; J1940; J2270; J2405; J2920; J2930; J2997; J3475; J7030; J7040; J7050; J7512; J9070; P9016; P9017; P9045; P9047; Q4081

== ENCOUNTER → 2016-08-26 | Outpatient (CLI) | payer MEDICARE ==
[~2016-08-26] MED LIST: ARTIFICIAL TEAR15 ML OPHTH; ASPIRIN LO-DOSE81 MG PO; CARAFATE1 GM PO; CELLCEPT500 MG PO; CEPASTAT1 LOZ PO; COLACE100 MG PO; COREG25 MG PO; DELTASONE20 MG PO; GLUCOTROL10 MG PO; LEVEMIR FL100 UNIT/1 SUB-Q; METFORMIN HCL500 MG PO; MIRALAX17 GM PO; NORVASC10 MG PO; NORVASC5 MG PO; NOVOLOG FL100 UNIT/1 SUB-Q; PAMELOR25 MG PO; PRAVACHOL40 MG PO; PROTONIX40 MG PO; SENNA8.6 MG PO; TYLENOL325 MG PO
== END | disposition disaster alternative care site (69) ==
LOC: LGSMG 09:25
DX: M32.14 Glomerular disease in systemic lupus erythematosus (principal)

== ENCOUNTER 2016-08-31 00:30 | Inpatient (IN) | payer MEDICARE ==
[~2016-08-31] VITALS: Ht 182.9 cm; Wt 85.9 kg
--- NOTE | ~2016-08-31 | ESTC ---
Cardiac Perfusion Imaging Demographics Patient Name LUNA SIMEON Gender Male Patient Number [id number] Race Black Visit Number [id number] Ethnicity Corporate ID Room Number G6320 Accession Number [id number] Height 72 inches Date of 1955 Weight 192 pounds Interpreting SLY Guzmán Date of study 09/03/2016 Physician Luis Daniel Radford MD Supervising MD/MLP Luis Daniel Radford NM Technologist Katie Abbott MD Ordering Physician Marco Zafar Stress Yanelis Anthony MD food science technician [facility] Stress ECG Reading Luis Daniel Radford Nurse Sarahi Turner RN Physician The procedure was explained in detail to the patient. Risks, complications and alternative treatments were reviewed. Written consent was obtained. Medications Reviewed with Patient prior to Procedure. Procedure Procedure Type: Nuclear Stress Test:Cardiolite Stress Test Procedure Start time: 09/03/2016 09:00 Risk Factors The patient risk factors include:insulin treated diabetes mellitus and renal failure currently treated with dialysis . Conclusions Summary Perfusion Images: The overall quality of the study is good. Left ventricular cavity is noted to be normal on the stress and normal on the rest images. There is no evidence of abnormal lung activity. The right ventricle is not visualized an cannot be assessed. Impression ECG portion of lexiscan stress test is clinically negative for ischemia by diagnostic criteria. Myocardial perfusion imaging is normal. Overall left ventricular systolic function was normal without regional wall motion abnormalities. Calculated LVEF is 65% and TID ratio is 1.01. There are no previous studies for comparison. Stress Protocols Resting ECG NSR Pre-stress physical exam: s1 s2, rrr clear lungs Predicted HR: 157 bpm ECG Findings No ECG changes suggestive of ischemia. Arrhythmias No rhythm abnormality. Symptoms No symptoms with Lexiscan infusion. Stress Interpretation Appropriate hemodynamic response to Lexiscan. No significant ST-T wave changes with Lexiscan. ECG portion is negative for ischemia by diagnostic criteria. Imaging Results Summed scores - Summed stress score: 5 - Summed rest score: 2 - Summed difference score: 3 Stress ejection Ejection fraction:65 % EDV :136 ml ESV :48 ml Stroke volume :88 ml LV mass :155 gr Imaging Protocols Rest Stress Isotope:Tc99m Sestamibi IV Isotope: Tc99m Sestamibi IV Isotope dose:12.97 mCi Isotope dose:40.5 mCi Date:09/03/2016 08:05 Date:09/03/2016 10:29 Technique: SPECT Technique: Gated Supine SPECT Supine IV remains in place after procedure. Scan Time:45-60 minutes post Scan Time:45-60 minutes post injection injection Procedure Medications - Regadenoson (Lexiscan) 0.4 mg IV over 10-15 sec. I.V. . Medical History Admission Data Admission date: 08/31/2016 Admission Time: 00:30 Hospital Status: Inpatient. Signatures dtt: CARTER SALDAÑA dtd: 09/03/16 0900 Physician Self Edit
--- NOTE | ~2016-08-31 | LTR ---
PATIENT'S NAME: FAISAL CARRASCO [facility] AGE: 61 Y [address] ROOM: G63[address] [place], [place] [address] LOCATION: GPCU ADMIT DATE: 08/31/2016 Letter DISCHARGE DATE: 09/07/2016 FAMILY PHYSICIAN: Physician, Unknown ATTENDING PHYSICIAN: Inocente Villeda September 07, 2016 Re: FAISAL CARRASCO [facility]. Faisal Carrasco was seen in the hospital by Medical Oncology for evaluation of his persistent anemia. The consult was dictated on 09/04/2016. Since that time, the lab has returned. The reticulocyte production index was 0.3%. The LDH was elevated at 502. The ferritin was normal at 980 ng/mL. The iron and TIBC were 61/143 and the percent saturation 43%. The haptoglobin was 67 and repeat haptoglobin was 70, so it was low-normal, but there was no evidence of hemolytic anemia. No antibodies were detected on type and cross and the Noemi test was negative. Stools for Hemoccult were negative x2, but the third sample was not obtained. We discovered that the erythropoietin had been started on 08/05/2016, so if we plan to draw blood work for anti- erythropoietin antibodies, we would probably get that on 09/30/2016, 8 weeks after the erythropoietin was initiated. We were very worried about the patient's transfusion requirements. We did not want to overlook the possibility of a parvovirus infection. Sometimes this can lead to an aplastic crisis when the patient is an immunocompromised host. We bernadette the parvovirus assay and that value should return by 09/13/2016. The patient's transfusion requirements did fall and were stable for 2 days before his dismissal. Dr. Garces discontinued the patient's cyclophosphamide and will substitute mycophenolate mofetil. The patient is on a tapering dose of steroids. We were quite sure the patient has anemia of chronic inflammation plus anemia due to chronic kidney disease and possibly cyclophosphamide, although the cyclophosphamide contributions seems out of proportion to the usual cyclophosphamide effect. We need to keep parvovirus in mind and need to keep anti-erythropoietin antibodies in mind if the hemoglobin is still down on 09/30/2016. We made arrangements to see the patient when his parvovirus assay is back and to see if his hemoglobin is stable or not. The patient was discharged on 09/07/2016. He will see Dr. Garces in 4 weeks. He is going to see the outpatient simulation educator in [place], [place]. The patient will see his primary physician, Suzi Hanley, as needed. The patient's blood sugars ranged from 82-346 on the patient's last day of hospitalization. PATIENT'S NAME: FAISAL CARRASCO [facility] AGE: 61 Y [address] ROOM: [place] [address] LOCATION: GPCU ADMIT DATE: 08/31/2016 Letter DISCHARGE DATE: 09/07/2016 FAMILY PHYSICIAN: Physician, Unknown ATTENDING PHYSICIAN: Inocente Villeda MD GKB/fausto /[id number] CC: MD Inocente Doan MD Hannah Haack, MD Abhisekh Sinha Ray, MD
--- NOTE | ~2016-08-31 | CON ---
PATIENT'S NAME: CAILIN CARRASCO [facility] AGE: 61 Y [address] ROOM: [address] [place], [place] [address] LOCATION: GPCU ADMIT DATE: 08/31/2016 Consultation DISCHARGE DATE: FAMILY PHYSICIAN: PHYSICIAN, UNKNOWN ATTENDING PHYSICIAN: FAREED ANGLIN DATE OF CONSULTATION: 09/01/2016 REFERRING PHYSICIAN: CODY BINGHAM CARDIOLOGY CONSULTATION REASON FOR CARDIOLOGY CONSULTATION: Loss of consciousness during dialysis. HISTORY OF PRESENT ILLNESS: This is a 61-year-old male who does have a history of being deaf. History was reviewed from the patient's chart and then verified with patient with the help of his writing device. He has a previous history of admission to [facility] due to a rapidly progressing lupus glomerulonephritis and is currently on Cytoxan and prednisone as well as hemodialysis. He is currently admitted this day for a loss of consciousness at home secondary to profound hypoglycemia. His details related to admission are not completely clear. He overall denies chest pain, shortness of breath, palpitations, nausea, or vomiting. Once again, this consult is requested due to the patient having a repeat episode of loss of consciousness during a round of dialysis. PAST MEDICAL HISTORY: 1. Deafness. 2. Diabetes mellitus, type 2. 3. Hypertension. 4. Systemic lupus erythematosus. 5. History of pericardial effusion secondary to lupus. 6. Previous glomerulonephritis secondary to lupus. Currently on hemodialysis on Monday, Monday, and Monday. FAMILY HISTORY: No significant family history noted. SOCIAL HISTORY: The patient denies tobacco use. He also denies alcohol or illicit drug use. CURRENT MEDICATIONS: 1. Aspirin 81 mg p.o. daily. 2. Colace 100 mg p.o. twice daily. PATIENT'S NAME: CAILIN CARRASCO [facility] AGE: 61 Y [address] ROOM: [id number] [place], [place] [address] LOCATION: GPCU ADMIT DATE: 08/31/2016 Consultation DISCHARGE DATE: FAMILY PHYSICIAN: PHYSICIAN, UNKNOWN ATTENDING PHYSICIAN: FAREED ANGLIN 3. Coreg 25 mg p.o. twice daily. 4. Deltasone 80 mg p.o. daily. 5. MiraLAX 17 g p.o. daily. 6. Protonix 40 mg p.o. twice daily. 7. Levemir 8 units subcutaneous daily. 8. NovoLog subcutaneous on a mild sliding scale per every 4 hour Accu-Cheks. MEDICATION ALLERGIES: No known medication allergies. REVIEW OF SYSTEMS: Pertinent positive review of systems are listed in the HPI. All other review of systems evaluated and negative. PHYSICAL EXAMINATION: VITAL SIGNS: Temperature 98.2, pulse 69, respirations 16, blood pressure 139/79, and O2 saturation 98% on room air. The patient weighs 87.2 kg. SKIN: Normal for race and warm and dry. EYES: Sclerae clear. No xanthelasmas. ENT: Oral mucosa is pink and moist. No jugular venous distention or carotid bruits. CHEST: Respirations are even and unlabored. LUNGS: Clear to auscultation. HEART: Regular rate and rhythm. Normal S1 and S2. There is a presence of an S4. No murmurs, rubs, or gallops. ABDOMEN: Soft and nontender. MUSCULOSKELETAL: Gait is normal. EXTREMITIES: Peripheral pulses palpable. No clubbing or cyanosis noted. Does have mild lower extremity edema present. PSYCHIATRIC: Alert and oriented. Mood and affect are appropriate. IMPRESSION AND PLAN: Per Dr. Lara: 1. Loss of consciousness during dialysis. 2. Diabetes mellitus. 3. Hypertension. 4. Previous glomerulonephritis secondary to rapidly progressing lupus, currently on Cytoxan and prednisone as well as hemodialysis. The patient's echocardiogram shows a left ventricular ejection fraction of 60%. There is noted inferior hypokinesis. Questioning a possible Cytoxan toxicity. We will check a set of cardiac enzymes as well as a lipid panel. The patient may need heart catheterization to fully evaluate coronary anatomy, but in view of his suspected bleeding with decreased hemoglobin, we may proceed with Lexiscan first. We will continue to monitor, evaluate, and treat as appropriate. PATIENT'S NAME: CAILIN CARRASCO [facility] AGE: 61 Y [address] [place]: [facility] [place] [address] [facility] AD[facility] DATE: 08/31/2016 Consultation DISCHARGE DATE: FAMILY PHYSICIAN: PHYSICIAN, UNKNOWN ATTENDING PHYSICIAN: FAREED ANGLIN Thank you for this consult. Thank you for allowing [facility] to interact in the care of this patient. SHARA DUMONT APRN FOR MD SHAWNA CLARK/fausto /[id number] d: 09/02/16 1415 t: 09/15/16 1754, CONSULTATION REPORT
--- NOTE | ~2016-08-31 | CON ---
PATIENT'S NAME: FAISAL CARRASCO [facility] AGE: 61 Y [address] ROOM: [address] [place] [id number] LOCATION: GPCU ADMIT DATE: 08/31/2016 Consultation DISCHARGE DATE: FAMILY PHYSICIAN: PHYSICIAN, UNKNOWN ATTENDING PHYSICIAN: FAREED ANGLIN REFERRING PHYSICIAN: CODY GARCES Consult to Dr. Anglin. Faisal Carrasco is a 61-year-old man with uncharacterized anemia in the setting of hemodialysis dependent renal failure due to rapidly progressive glomerulonephritis associated with systemic lupus erythematosus. The earliest complete blood count available was obtained on 07/23/2016. At that time, the white count was 6200 with 76% neutrophils and 11% lymphocytes. The hemoglobin was 9.2 G/dl, the MCV 87, the platelets were 271,000. On 09/02/2016, the white count was 7100 with 90% segs and 2% bands. The hemoglobin was 6.9 G/dL, the MCV was 89, the platelets were 73,000. The platelets were 156,000 upon discharge from the hospital on 09/04/2016 that were only 82,000 upon admission to the hospital on 08/31/2016. The patient is hospitalized due to syncope associated with insulin induced hypoglycemia. The patient received insulin, dose and type undetermined, from his roommate at home on the day of admission, 08/31/2016. The patient was dizzy, lightheaded and then comatose. The patient's fingerstick glucose was 20 and so half an amp of D50 was given, and the patient was transported to the emergency room at [facility]. D50 was administered on two more occasions in the emergency room and D5 normal saline was administered. The patient's blood sugar trish, and he was transferred to [facility] for dialysis and observation due to his insulin induced hypoglycemia. Prior to this episode, the patient was living in [place], [place], in a mobile home with his roommate who was a woman. The patient had just retired. The patient did not need any assistive devices to walk. He cleaned his bedroom and made the point that he had even continued to dance. He denied any practical limits and maintained he could walk 5 miles if he had to. He has been retired for a short time. He has been gaining weight due to corticosteroid treatments. The patient has entirely regained consciousness. The patient does not report any longstanding primary hematologic disorder. The patient is currently under care for rapidly progressive glomerulonephritis leading to end-stage renal disease and is hemodialysis dependent, presumed related to systemic lupus erythematosus. The history is obtained from the PATIENT'S NAME: FAISAL CARRASCO [facility] AGE: 61 Y [address] ROOM: [place] [address] LOCATION: GPCU ADMIT DATE: 08/31/2016 Consultation DISCHARGE DATE: FAMILY PHYSICIAN: , TYRA ATTENDING PHYSICIAN: FAREED ANGLIN patient, whose history cannot be entirely confirmed due to a dearth of records from outside facilities, where he has received rheumatologic consultation; from Dr. Anglin; and from review of the current and old [facility] record. The patient's history is obtained through an language interpreter, as the patient is both deaf and mute. The patient's language interpreter had difficulty conveying some of the medical questions. The patient reports he had systemic lupus erythematosus as early in the when he reported with pericarditis. The patient had apparently undergone therapy for this over the years and had chronic kidney disease over the years, that was not hemodialysis dependent. In early July 2010, he developed an intractable nausea, vomiting, and diarrhea for over 24 hours and was evaluated in [place]. The creatinine was 4.9 mg/dL, and he was transferred to the [facility] where he was hospitalized from 07/23 through 08/11/2016. The patient underwent a left kidney core needle biopsy on 07/25/2016 and plasmapheresis on 08/02 and 08/04/2016. A tunneled dialysis catheter was placed on 08/09/2016, and the patient has been receiving hemodialysis on Monday, Monday, and Monday. On 07/28/2016, 1000 mg of cyclophosphamide was administered and on 08/10/2016, 500 mg of cyclophosphamide was administered. On 08/27/2016, the third cycle was administered. The patient denied any difficulty with cyclophosphamide, but acknowledged the oral prednisone that he has been taking has been associated with pedal edema and weight gain and difficulty controlling his diabetes. The patient is on 80 mg of prednisone daily upon his admission. Upon admission, the creatinine was 5 mg/dL. ACTIVE MEDICAL PROBLEMS (CHRONIC AND DIAGNOSED): 1. Type 2 diabetes mellitus noted approximately 2006, when the patient had polydipsia. The patient has been checking his blood sugars around 3 times a day. He has been on oral hypoglycemics and parenteral insulin preparations. He has never been hospitalized for hypoglycemia before and has never been hospitalized for hyperglycemia. The patient's diabetes has been complicated with a mild peripheral neuropathy. 2. 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 The patient is also mute. 3. SLE, first noted in the when the patient experienced pericarditis. The patient has had chronic kidney disease, but just developed biopsy- proven rapidly progressive glomerulonephritis in July 2016. The patient is currently on hemodialysis for his end-stage renal disease. He was followed by a wildlife refuge specialist in [place], [place], but cannot remember his name or the clinic, and we will try to obtain these records. 4. Overweight. The patient's BMI is 26.1 kg/M2 upon admission. 5. Grade 1 diastolic dysfunction with mild concentric LVH noted on echocardiogram. 6. Mild mitral regurg, aortic regurg and mild aortic sclerosis noted on PATIENT'S NAME: FAISAL CARRASCO [facility] AGE: 61 Y [address] ROOM: [address] [address] [facility] ADMIT DATE: 08/31/2016 Consultation DISCHARGE DATE: FAMILY PHYSICIAN: PHYSICIAN, UNKNOWN ATTENDING PHYSICIAN: FAREED ANGLIN echocardiogram. 7. Atherosclerotic vascular disease with calcification of the thoracic aorta on CAT scan. 8. Arteriosclerotic cerebrovascular disease? Reference is made to an old CVA. 9. Migraine headaches. The patient last had a migraine two weeks ago and is more likely to get them if he is "stressed." These are associated with photophobia, and are disabling. The headaches are associated with nausea, but no vomiting. He takes APAP. He is not able to take any other preparations to relieve his migraines due to his SLE. 10. Hyperlipidemia noted in 1996. 11. ? Acid peptic disease-GERD. The patient reports he had a gastric ulcer in 1981 though it is not clear how that was documented. The patient is on sucralfate and a proton pump inhibitor. 12. Essential arterial hypertension noted in 1996. This has not been labile. 13. 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 The patient underwent surgery for this. 14. ? Raynaud phenomena. ACUTE MEDICAL ILLNESSES (RESOLVED), PAST SURGERIES, INJURIES: 1. 1967, left shoulder surgery. 2. 1989, right eye surgery for traumatic injury. 3. 1989, bunionectomy of the 5th left toe. 4. 2001, left herniorrhaphy. 5. 2006, appendectomy. MEDICATIONS UPON ADMISSION: 1. Acetaminophen 125 mg two p.o. every 6 hours p.r.n. pain or temperature. 2. ASA 81 mg daily. 3. Carvedilol 25 mg daily. 4. Docusate sodium 100 mg p.o. b.i.d. 5. Insulin aspartame 7 units subcu t.i.d. 6. Insulin detemir 35 units subcu daily. 7. Pantoprazole 40 mg daily. 8. Prednisone 80 mg daily every 2 weeks cyclophosphamide as already noted. ADVERSE REACTIONS TO MEDICATIONS, TRANSFUSIONS, ALLERGIES: 1. No known allergies. 2. The patient received packed red blood cell transfusions on 08/05/2016 and 09/01/2016. TOBACCO: none. ALCOHOL: none. CAFFEINE: 1. Hot tea daily. 2. Rarely coffee. PATIENT'S NAME: FAISAL CARRASCO [facility] AGE: 61 Y [address] ROOM: [place] [address] LOCATION: [facility] ADMIT DATE: 08/31/2016 Consultation DISCHARGE DATE: FAMILY PHYSICIAN: PHYSICIAN, UNKNOWN ATTENDING PHYSICIAN: FAREED ANGLIN 3. Rarely sodas. IMMUNIZATIONS: Positive flu. Positive Pneumovax. Negative tetanus. Negative varicella zoster virus. FAMILY HISTORY: Negative for autoimmune disorders. A sister at age 32 and 21 of cancer, type unknown. Maternal aunt of cancer, type unknown, at 66. SOCIAL HISTORY: The patient was born in [place], [place]. He attended [employer] in [place], [place]. He currently lives in [place], [place]. 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 The patient was , but then . He has a son and daughter who live in [place]. He attends a [employer] faith. REVIEW OF SYMPTOMS: 1. Dysuria due to placement of a Ann catheter during the last hospitalizations. 2. The patient sometimes has needles and pins feeling in the tips of his fingers and toes. This can go away. 3. Raynaud phenomena in the cold. 4. The patient still urinates, sometimes several times a day. 5. The patient occasionally has heart palpitations that awaken him. 6. The patient has had an ankle swelling on occasion. PHYSICAL EXAMINATION: VITAL SIGNS: Pulse 72 and regular, blood pressure 145/75, respiratory rate 14, temperature 98.1, height 72 inches, weight 87.2 kg (192 pounds). BMI 25.6 kg/M2. GENERAL: Well-developed, slightly overweight 61-year-old Osbaldo male, in no acute distress. HEENT: Unremarkable. LYMPH NODES: None palpable. NECK: IJ line in the right jugular vein. No bruits. Lymph nodes not palpable. SKIN: Unremarkable. CHEST: Clear anteriorly. CV: Regular rhythm. No murmurs or bruits. S4 present. ABDOMEN: Healed vertical scar from the umbilicus to the symphysis pubis. No masses, tenderness, or megaly. GENITALIA AND RECTAL: Not examined. EXTREMITIES: Trace peripheral edema in the lower extremities. Pulses 2+ in the upper extremities, 1+ in the lower extremities. PATIENT'S NAME: FAISAL CARRASCO [facility] AGE: 61 Y [address] ROOM: [place] [address] LOCATION: GPCU ADMIT DATE: 08/31/2016 Consultation DISCHARGE DATE: FAMILY PHYSICIAN: PHYSICIAN, UNKNOWN ATTENDING PHYSICIAN: FAREED ANGLIN NEUROLOGIC: Grossly intact. The patient moves all 4 extremities. IMPRESSION: 1. Normocytic anemia noted since 07/23/2016, but very probably present before, transfusion-dependent, associated with grade 1 thrombocytopenia first noted on 08/31/2016. 2. The anemia is clearly related in some degree due to chronic inflammation and chronic kidney disease and cyclophosphamide. There may be other factors contributing to the anemia. PLAN: DIAGNOSTIC: CBC with differential, reticulocyte count, haptoglobin, iron, TIBC, ferritin, and Noemi test As ordered by Dr. Garces. It is reassuring that when the patient's blood was crossmatched during this hospitalization and the other hospitalization The antibody screen was negative, so the patient probably does not have an autoimmune hemolytic anemia. TREATMENT: No more specific therapy for the anemia, although we would need to explore whether erythropoietin has been given at the dialysis unit in [place] as erythropoietin may be warranted. PATIENT EDUCATION: 1. Discussed the differential diagnosis of his condition. 2. Made the point we may be considering erythropoietin if it has not already been initiated in [place], [place]. MD GLEN SARMIENTO/modl /[id number] CC: MD Suzi Montemayor MD Abhisekh Sinha Ray, MD Panayotis-Alain Efstratiou, MD d: 09/04/16 1651 t: 09/05/16 1335, CONSULTATION REPORT
--- NOTE | ~2016-08-31 | HP ---
PATIENT'S NAME: CAILIN CARRASCO [facility] AGE: 61 Y [address] ROOM: [address] [place], [place] [address] LOCATION: GPCU ADMIT DATE: 08/31/2016 History & Physical DISCHARGE DATE: FAMILY PHYSICIAN: PHYSICIAN, UNKNOWN ATTENDING PHYSICIAN: FAREED ANGLIN DATE OF SERVICE: CHIEF COMPLAINT: Altered mental status secondary to insulin-induced hypoglycemia. HISTORY OF PRESENT ILLNESS: This is a 61-year-old male who is deaf and however he can communicate by writing on the board and through a neon sign erector. The story is obtained directly from the patient and from the neon sign erector through the computer, but the story is not entirely clear given that the patient does not remember much of the story. The story is that the patient was recently discharged from our hospital on 08/11/2016 for rapidly progressive glomerulonephritis secondary to acute exacerbation of systemic lupus erythematosus in the setting of diabetes type 2, taking steroids for the lupus inducing hyperglycemia requiring insulin treatment for the hyperglycemia. During the last admission, patient was also dialyzed and had the tunnel dialysis catheter placed on the right upper chest on 08/09/2016. At that time, the patient was discharged with insulin with NovoLog 7 units subcutaneous before each meal at the breakfast, lunch, and dinner and also insulin Levemir 35 units once a day in the morning. The patient states that he lives with a roommate and that the roommate is a person who is helping with the insulin injection. The patient says that since discharge back home, the patient has been having a poor appetite and sometime he eats twice a day, sometime he eats three times a day, but no matter how many times he eats he was getting three times a day the insulin at the regular scheduled dose. It is not quite clear if he was also given the Levemir or not, but from the physician who transferred the patient here told me that today he got three doses of 7 units of NovoLog and also 20 units instead of the 35 units of insulin Levemir. The patient says that right after he got the insulin and not sure which one, either the NovoLog or the Levemir, the patient started feeling dizzy, lightheaded, and he had passed out. At home, the patient's fingerstick glucose was found to be hypoglycemic at 20 and was given half amp of D50, and the patient was brought to the emergency room at [facility]. Over there, the patient required a few more doses of D50 amp and was also started on D5 normal saline and the patient was getting more awake and last time they checked the fingerstick glucose, it was 92, that was at 9:30 p.m. on 08/30/2016. The patient is on dialysis every Monday, Monday, Monday. The patient was transferred here for higher level of care due to dialysis need and also insulin-induced hypoglycemia requiring a close monitoring. The D5 water PATIENT'S NAME: CAILIN CARRASCO [facility] AGE: 61 Y [address] ROOM: [address] [address] LOCATION: GPCU ADMIT DATE: 08/31/2016 History & Physical DISCHARGE DATE: FAMILY PHYSICIAN: PHYSICIAN, UNKNOWN ATTENDING PHYSICIAN: FAREED ANGLIN was started at 75 mL/h from the outside facility. The patient also had a CT of the head without contrast from the outside facility and it was negative and it showed some finding of old stroke. The imaging was already pushed to the PAC according to the outside facility, but they do not have the official written report, but based on the phone report that the transferring physician got from the outside, there was no hemorrhage, there were no acute changes except some finding of old CVA. REVIEW OF SYSTEMS: As mentioned in the history of present illness. All other systems reviewed and negative except those mentioned in history of present illness. PAST MEDICAL HISTORY: 1. Deaf. 2. Diabetes type 2. 3. 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 4. Anemia of chronic kidney disease. 5. Hypertension. 6. History of pericardial effusion secondary to systemic lupus erythematosus. ALLERGIES: NO KNOWN DRUG ALLERGIES. HOME MEDICATIONS: Currently has been reconciled. SOCIAL HISTORY: Denies any alcohol, illegal drug, or cigarette use. FAMILY HISTORY: The patient does not remember significant past medical history in either parents. PAST SURGICAL HISTORY: Status post right tunnel cath for hemodialysis on the right upper chest. PHYSICAL EXAMINATION: VITAL SIGNS: At the time of my dictation, temperature 97.9, heart rate 77, respirations 16, blood pressure 147/74, saturation 96% on room air. Pain 0/10. GENERAL APPEARANCE: Alert and oriented x3, in no acute distress. HEENT: Pupils are equally round and reactive to light. Extraocular muscles PATIENT'S NAME: CAILIN CARRASCO [facility] AGE: 61 Y [address] ROOM: [address] [place], [place] [address] LOCATION: GPCU ADMIT DATE: 08/31/2016 History & Physical DISCHARGE DATE: FAMILY PHYSICIAN: PHYSICIAN, UNKNOWN ATTENDING PHYSICIAN: FAREED ANGLIN intact. Nasal turbinates are normal bilaterally. Moist oral mucosa. No oral thrush. NECK: No JVD. No cervical lymphadenopathy. No neck stiffness. CARDIOVASCULAR: Regular rate and rhythm. Normal S1, S2. No murmur, no rubs, no gallops. RESPIRATORY: Clear. Chest wall nontender to palpation. ABDOMEN: Soft, nontender, nondistended, normal bowel sounds, no hepatosplenomegaly. Bowel sounds present. EXTREMITIES: Pitting edema in bilateral lower extremities. NEUROLOGIC: Grossly nonfocal. SKIN: No ulcer, no rash, no cyanosis. MUSCULOSKELETAL: No joint pain. No muscle pain. LABORATORY DATA: Currently, our labs are pending. Labs from the outside facility today show white blood cell 8.2, hemoglobin 7, hematocrit 22, platelets 87. Sodium 143, potassium 3.1, chloride 104, CO2 of 32, anion gap of 7, BUN 68, creatinine 4.39, glucose 59, calcium 6.8. Albumin 2.6, total protein 5.1, alkaline phosphatase 51, AST 27, ALT 25, total bilirubin 0.5. GFR 18. IMAGING STUDY: CT of the head without contrast based on the verbal report given to me from the outside facility physician showed possible old CVA and no acute finding. ASSESSMENT AND PLAN: 1. Unresponsiveness secondary to insulin-induced hypoglycemia: Likely this is from the decreased oral intake in the setting of using the standing doses of the NovoLog on top of the subcutaneous Levemir causing him to become hypoglycemic and causing insulin-induced hypoglycemia. CT of the head from the outside facility showed no hemorrhage and no acute finding except some possible old CVA. On my examination, the patient does not have any neurological deficit. He is alert and oriented. There is no facial droop. There is no muscle weakness. The patient is not in distress. I do not think this is a stroke. The plan for him will be to stop all insulin and check fingerstick glucose every 15 minutes as long as the fingerstick glucose is less than 150 and I am going to give him dextrose 1 amp of 50% dextrose 50 mL as long as the fingerstick glucose is less than 100, and we will check the fingerstick glucose every 30 minutes once the fingerstick glucose is above 150. We will check the fingerstick glucose every hour once the fingerstick glucose is above 200. When the fingerstick glucose is more than 300, have the nurse call MD. The patient should eat a renal diet, and we will bring apple juice and orange juice and also Jell-O at the baseline for the patient to eat as well. I will also give him 1 dose of subcutaneous 1 mg of glucagon and repeat as necessary. It takes about 30 minutes to work and peak at one PATIENT'S NAME: CAILIN CARRASCO [facility] AGE: 61 Y [address] ROOM: [place] [address] [facility] AD[facility] DATE: 08/31/2016 History & Physical DISCHARGE DATE: FAMILY PHYSICIAN: PHYSICIAN, TYRA ATTENDING PHYSICIAN: FAREED ANGLIN hour. If in the next few hours the patient is still hypoglycemic despite frequent dextrose infusion, we will give him another dose of glucagon subcutaneous. For now, the patient's lungs are clear. He is not hypoxic. He still makes urine. I will put a Ann in and consult Nephrology for tomorrow for his usual dialysis. In the mean time, I am going to give him D5 half-normal saline at 60 mL/h to prevent hypoglycemia with D5 water half-normal saline infusion. Further plan depends on clinical course. Labs are pending. 2. Regarding his rapidly progressive glomerulonephritis from lupus: Nephrology consult tomorrow for his usual hemodialysis. I will try to get a peripheral IV access right now for him, but he is very hard to stick for now. He is still using the tunnel catheter for the D5 water and half normal saline infusion that was started from the outside facility. I am going to get two peripheral IV on him or one and then we are going to stop the infusion from the tunnel catheter and flush with heparin to prevent clogging. If we cannot get IV access on him, we will keep infusing the D5 water until dialysis is due tomorrow to prevent clogging of the tunnel catheter. 3. Regarding his lupus. Continue the home prednisone. 4. Regarding his hypertension. Continue the home medication. In addition, I will give him IV hydralazine p.r.n. and IV labetalol p.r.n. with holding parameters for hypertensive urgency and emergency. 5. Regarding his diabetes type 2. For now, of course, we will hold off on all insulin. Once his hypoglycemia is corrected, I will consult assistant health educator and to go over the home regimen again with him to prevent further insulin-induced hypoglycemia in the future. 6. Deep venous thrombosis prophylaxis. He will be on heparin subcu 5000 units t.i.d. Time spent in care on the day of admission 50 minutes including chart review, interviewing the patient, examining the patient, addressing all the questions and concerns that the patient had, and going over the plan of care with the patient and nurses. I tried to call the roommate who was managing his insulin, the name is Aimee and her phone number is [phone] and I left a voicemail because she did not answer the phone. I asked her to call back to the PCU floor and talk to the physician, so we can get more history upon the patient. Currently, she has not called back yet. FAREED ANGLIN MD CC/jaylonl PATIENT'S NAME: CAILIN CARRASCO [facility] AGE: 61 Y [address] ROOM: [place] [address] [facility] ADMIT DATE: 08/31/2016 History & Physical DISCHARGE DATE: FAMILY PHYSICIAN: PHYSICIAN, UNKNOWN ATTENDING PHYSICIAN: FAREED ANGLIN /[id number] D: 545 T: HISTORY & PHYSICAL
--- NOTE | ~2016-08-31 | CON ---
PATIENT'S NAME: CAILIN CARRASCO [facility] AGE: 61 Y [address] ROOM: [address] [place], [place] [address] LOCATION: GPCU ADMIT DATE: 08/31/2016 Consultation DISCHARGE DATE: FAMILY PHYSICIAN: PHYSICIAN, UNKNOWN ATTENDING PHYSICIAN: FAREED ANGLIN DATE OF CONSULTATION: 08/31/2016 REFERRING PHYSICIAN: CODY BINGHAM REASON FOR CONSULTATION: Need for hemodialysis treatment. 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 This patient is deaf and dumb and can only communicate by writing or through a design transferrer. History has taken from the patient via Samuel. He was recently discharged from our hospital after being managed for rapidly progressive GN secondary to lupus nephritis class 4 as explained above along with some background diabetic nephropathy, currently being treated with Cytoxan as per the Euro-Lupus protocol and steroid. The patient is status post 3 infusion of Cytoxan, the last dose of Cytoxan was on Monday. He is getting dialyzed as per Monday, Monday, and Monday schedule since last hospital admission and generally goes [facility] for outpatient dialysis. His renal function has not shown much improvement since discharge, however, his proteinuria has significantly reduced after Cytoxan infusion from 11 grams to 3.4 grams on most recent check. He was last seen in my clinic on last Monday. During the last hospital visit due to steroid, the patient was started on insulin with NovoLog 7 units subcutaneously before each meal and insulin Levemir 30 units once a day in the morning. The patient does not have a close relative, however, lives with a roommate and the roommate was the person who was helping him with insulin injection. For the last few days, he reported poor appetite, however, he continues to eat 3 times a day, but how many times he eats he gets 3 times a day insulin at his regular scheduled dose. Yesterday, after his insulin injection, he started feeling dizzy, lightheaded, and passed out. Fingerstick was found to be 20 and gave half amp of D50 and brought to the emergency room at [facility]. Over there, he got couple of more doses of D50 and was started on D5 normal saline drip. The patient is awake and oriented at this point. Last fingerstick was 109 this morning. The patient was transferred to our hospital for need for dialysis and insulin induced hypoglycemia, requiring close monitoring. The patient is currently on D5 water drip at 75 mL/h. CT scan of the head done at an outside hospital, reported to be normal, only showing an old stroke. The patient denied any chest pain, shortness of breath, orthopnea, or PND; however, continues to have significant dependent edema. We have started the patient on Lasix 40 b.i.d. for the edema as well as planning for aggressive diuresis on dialysis for volume control.PATIENT'S NAME: CAILIN CARRASCO [facility] AGE: 61 Y [address] ROOM: [place] [address] LOCATION: GPCU ADMIT DATE: 08/31/2016 Consultation DISCHARGE DATE: FAMILY PHYSICIAN: PHYSICIAN, UNKNOWN ATTENDING PHYSICIAN: FAREED ANGLIN REVIEW OF SYSTEMS: GENERAL: No fever. No chills or rigor. HEENT: No sore throat. No sinus congestion. CVS: No chest pain. No exertional shortness of breath. No leg swelling. RESPIRATORY: No shortness of breath. No cough. No wheezing. GENITOURINARY: No pain with urination. No increased frequency. No nocturia. GASTROINTESTINAL: No abdominal pain. No abdominal distention. No nausea or vomiting. NEUROLOGIC: No weakness. No seizures. SKIN: No rash. No itching. ALLERGIES: No seasonal allergy. No hayfever. ENDOCRINE: No heat intolerance. No cold intolerance. PSYCHIATRIC: No sadness. No crying spells. No history of panic attack. EXTREMITIES: No cyanosis, clubbing, or jaundice. Significant dependent edema. PRODUCTION LABORER: Alert and oriented x3 now, however, the patient has reported to be passing out after getting insulin shot. EMS came to the scene, blood sugar was 20, was given half amp of D50. The patient got few more D50 at the outside hospital and mental status started to get better since then. No gross focal neurological deficit. PAST MEDICAL HISTORY: 1. Hypertension. 2. Diabetes type 2. 3. 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 4. Rapidly progressive GN secondary to lupus nephritis class 4 with necrotizing crescentic pattern on renal biopsy along with background diabetic retinopathy and anemia of chronic disease. ALLERGIES: NO KNOWN DRUG ALLERGIES. HOME MEDICATIONS: 1. Tylenol 650 mg p.o. q.6 hours p.r.n. for pain or temperature. 2. Aspirin 81 mg p.o. daily with food. 3. Coreg 25 mg p.o. b.i.d. 4. Colace 100 mg p.o. b.i.d. 5. NovoLog 7 units subcutaneous t.i.d. 6. Levemir 35 units subcutaneous daily. 7. Pantoprazole 40 mg p.o. b.i.d. 8. Prednisone 80 mg p.o. daily. 9. Cytoxan 500 mg every week as per the Euro-Lupus protocol. PAST SURGICAL HISTORY: Status post right tunneled dialysis catheter placement in the right upper chest and a left midline placement in the cubital fossa. FAMILY HISTORY: Does not remember any significant family history or any past medical history in either parents. SOCIAL HISTORY: No history of smoking, illicit drug use, or alcohol in the recent past.PATIENT'S NAME: CAILIN CARRASCO [facility] AGE: 61 Y [address] ROOM: [address] [address] [facility] AD[facility] DATE: 08/31/2016 Consultation DISCHARGE DATE: FAMILY PHYSICIAN: PHYSICIAN, UNKNOWN ATTENDING PHYSICIAN: FAREED ANGLIN PHYSICAL EXAMINATION: VITAL SIGNS: Blood pressure 120-140/70-90, saturation 96% on room air, temperature 97.9, heart rate 78, and respirations 16. Denied any pain. GENERAL: Not in apparent distress. HEAD: Moist mucous membranes. Bilateral PERRLA, EOMI. NECK: No JVD, thyromegaly or lymphadenopathy. CVS: S1 and S2 normal, regular rate and rhythm. No murmur, rub, gallop. CHEST: Bilateral air entry equal. No wheeze or rales. ABDOMEN: Soft, nontender, nondistended. Bowel sounds present. EXTREMITIES: No cyanosis, clubbing, or jaundice. 2+ dependent edema. MUSCULOSKELETAL: No limitation of range of motion. SKIN: No pallor, cyanosis, icterus. PRODUCTION LABORER: Alert and oriented x3. No gross focal neurological deficit. LABORATORY DATA: Lactate 1.1. CBC: Hemoglobin 7.4, hematocrit 21.9, WBC 11.7, and platelet 82. Chemistry: Sodium 141, potassium 3.5, chloride 102, bicarbonate 30, BUN 67, creatinine 4.7, glucose 250, albumin 2.5, ESR 46, and INR 1. UA: Specific gravity 1.010, pH 7, 3+ protein, 2+ blood, 2 to 5 wbc's per high- power field, and 50 to 100 rbc's per high-power field. Urine protein creatinine ratio is 3.4. CRP 0.41. Procalcitonin 0.34. ASSESSMENT AND PLAN: 1. Altered mental status secondary to hypoglycemia, possibly insulin induced. History of poor oral intake in the setting of continued dosing of insulin. CT head from the outside hospital is reported to be negative for any acute changes. Mental status significantly improved after giving multiple D50 and placement of D5 drip. Blood sugars currently at low 100s. Primary team is managing the diabetes with repetitive fingerstick and with close monitoring of blood sugar and apparently the insulin is on hold. 2. Acute kidney injury on chronic kidney disease stage III to stage IV. Baseline creatinine is unknown, however, as per the patient, he has significantly advanced chronic kidney disease at baseline. In my mind, the possible baseline is around 3 range. On last admission, the patient was admitted with a 4.1 creatinine, which slowly went up further with initiation of dialysis. The patient is still on dialysis, renal function did not improve much, however, the patient has significant improvement in his proteinuria after Cytoxan infusion x3 and being on prednisone. We are dialyzing him today as per his regular Monday, Monday, and Monday schedule. The patient is getting aggressively ultrafiltrated for significant dependent edema and hypertension. 3. Lupus nephritis class 4 with necrotizing crescentic pattern on histology along with background diabetic retinopathy. The patient is currently being treated with Cytoxan as per Euro-Lupus protocol 500 mg every two weeks x6 doses. The patient has currently received 3 dose, last dose was on last Monday. The patient is also on prednisone 80 mg p.o. daily. Proteinuria has come down from 11.4 to 3.4, however, the patient still continues to have at least 3+ proteinuria and 2+ blood on urine dipstick. We will closely monitor the patient's renal function and urine sediment in the future.PATIENT'S NAME: CAILIN CARRASCO [facility] AGE: 61 Y [address] ROOM: [address] [place], [place] [address] LOCATION: GPCU ADMIT DATE: 08/31/2016 Consultation DISCHARGE DATE: FAMILY PHYSICIAN: PHYSICIAN, UNKNOWN ATTENDING PHYSICIAN: FAREED ANGLIN 4. Hypertension. We will continue the current home medication. The primary team has been started p.r.n. hydralazine and labetalol, however, I do believe the hypertension is mostly volume driven with aggressive ultrafiltrate during dialysis. We will be able to control the blood pressure well. The patient will need some form of CLINT inhibitor or ARB for both blood pressure control and proteinuria; however, with history of acute kidney injury, we are holding back from RAAS blockade at this point. We will consider it on the next clinic visit. 5. Diabetes type 2, currently hypoglycemic, being managed by the primary care physician. I will defer that to the primary team. Thank you for allowing me to participate in this patient's care. We will closely monitor the patient's progress along with you. CODY BINGHAM MD /modl /[id number] d: 08/31/162020 t: 09/05/161713, CONSULTATION REPORT
--- NOTE | ~2016-08-31 | ECHO ---
Transthoracic Echocardiography Report (TTE) Demographics Patient Name CAILIN CARRASCO Date of Study 09/01/2016 Patient Number [id number] Visit Number [id number] Date of 1955 Room Number [address] Gender Male Number Age 61 year(s) Referring Shira Weiner Client Development Director Yanelis Copeland [facility] Physician Physician Interpreting Marco Zafar Paper Bag Making Machinist Physician A Supervising Ordering MD/MLP Physician Nurse Stress Insulator Technician Conclusions Summary The estimated left ventricular ejection fraction is 60%. Moderate to severe concentric left ventricular hypertrophy. Diastolic assessment reveals Grade I diastolic dysfunction. Inferior hypokinesis. Mild mitral regurgitation by color Doppler. There is mild aortic regurgitation by color Doppler. The aortic valve is mildly sclerotic. Trivial posterior pericardial effusion. Procedure Type of Study TTE procedure:2D Echocardiogram. Procedure Date Date: 09/01/2016 Start: 12:40 PM Study Location: Inpatient Portable Technical Quality: Good visualization Appropriate Use Criteria: 9 Patient Status: Routine HR: 74 bpm BP: 144/80 mmHg M-Mode/2D Measurements LV Diastolic Dimension: 4.2 cm LV Systolic Dimension: 3.92 cm LV Septum Diastolic: 1.65 cm LV PW Diastolic: 1.68 cm AO Root Dimension: 3.2 cm Cardiac Output: 5.16 l/min AV Cusp Separation: 1.9 cm RV Diastolic Dimension: 3.4 cm LA volume: 65 ml LVOT: 2 cm RV Mid: 2.39 cm LVOT VTI: 22.2 cm RV Length: 7.69 cm LV Stroke volume: 69.71 ml TDI-S': 15.8 cm/s Doppler Measurements AV Peak Velocity: 1.25 m/s MV Peak E-Wave: 0.56 m/s AV Peak Gradient: 6.25 mmHg MV Peak A-Wave: 1.01 m/s AV Mean Gradient: 3 mmHg MV E/A Ratio: 0.56 LVOT Peak Velocity: 1.2 m/s MV P1/2t: 70 msec TR Gradient:24.6 mmHg PV Peak Velocity: 1.26 m/s Estimated RAP:10 mmHg PV Peak Gradient: 6.35 mmHg Estimated RVSP: 35 mmHg Estimated PASP: 34.6 mmHg E' Septal Velocity: 0.04 m/s A' Septal Velocity: 0.11 m/s E' Lateral Velocity: 0.05 m/s A' Lateral Velocity: 0.13 m/s Findings Left Ventricle Moderate to severe concentric left ventricular hypertrophy. Diastolic assessment reveals Grade I diastolic dysfunction. Inferior hypokinesis. Right Ventricle Normal right ventricular size and function. Left Atrium The left atrium is mildly dilated. The left atrium is mildly dilated by LA volume index measurement. Right Atrium Normal right atrial size. Mitral Valve Mild mitral regurgitation by color Doppler. Aortic Valve There is mild aortic regurgitation by color Doppler. The aortic valve is mildly sclerotic. Tricuspid Valve Mild tricuspid regurgitation by color Doppler. Pulmonic Valve Normal pulmonic valve structure and function. Pericardial Effusion Trivial posterior pericardial effusion. Signature dtt: Mirella Lara dtd: 09/01/16 1240 Physician Self Edit
--- NOTE | ~2016-08-31 | DS ---
PATIENT'S NAME: CAILIN CARRASCO [facility] AGE: 61 Y [address] ROOM: [place] [address] [facility]: [facility] ADMIT DATE: 08/31/2016 Discharge Summary DISCHARGE DATE: FAMILY PHYSICIAN: Physician, Unknown ATTENDING PHYSICIAN: Inocente Villeda PRINCIPAL DIAGNOSIS: Altered mental status secondary to hypoglycemia. SECONDARY DIAGNOSES: 1. Hypoplastic anemia. 2. End-stage renal disease, secondary to rapidly progressing glomerulonephritis. 3. Systemic lupus erythematosus. 4. Hypertension. 5. Insulin-dependent diabetes mellitus. 6. 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 HOSPITAL COURSE: Briefly, this is a 61-year-old very pleasant gentleman with the past medical history significant for SLE and rapidly progressing glomerulonephritis, currently on Cytoxan as well as prednisone, requiring hemodialysis for his end-stage renal disease, managed by Nephrology. He was admitted with the chief complaint of unresponsiveness and altered mental status. On presentation to emergency department, his blood glucose was found to be very low around 20s. He was resuscitated in terms of his blood glucose levels and was admitted to the hospital. We also found that he was anemic with the hemoglobin around 7 which progressively got down during the course of the hospitalization requiring blood transfusion. We did a CAT scan of the head which did not reveal any etiology of his altered mental status. During the course of the hospitalization, he was noted to be hypotensive and some ST- T wave changes on the telemetry by the puddler helper and a Cardiology consultation was obtained. An echocardiography was done which did show inferior hypokinesis, but the Lexiscan did not reveal any residual or any active ischemia at this point. We came to the conclusion that this altered mental status was secondary to his hypoglycemia. Given that he is on steroids, so we are titrating the insulin levels up to obtain an optimal blood glucose control. We got Hematology and Oncology on board to help us with this anemia. The blood work done including reticulocyte count and iron studies did point towards this anemia being hypoplastic in origin. We are obtaining a Parvovirus as well as anti-EPO antibodies in the blood. He might need a bone marrow biopsy in the future but this is undecided. Discharge medication will be dictated by the physician who is discharging the patient. PATIENT'S NAME: CAILIN CARRASCO [facility] AGE: 61 Y [address] ROOM: [address] [address] LOCATION: [facility] ADMIT DATE: 08/31/2016 Discharge Summary DISCHARGE DATE: FAMILY PHYSICIAN: Physician, Suzette ATTENDING PHYSICIAN: Inocente Villeda MD ANGELI TRAN/fausto /[id number] d: 09/05/16 0414 t: 09/06/16 1213, DISCHARGE SUMMARY
--- NOTE | ~2016-08-31 | DS ---
PATIENT'S NAME: CAILIN CARRASCO [facility] AGE: 61 Y [address] ROOM: [address] [place], [place] [address] LOCATION: [facility] ADMIT DATE: 08/31/2016 Discharge Summary DISCHARGE DATE: 09/07/2016 FAMILY PHYSICIAN: Physician, Unknown ATTENDING PHYSICIAN: Inocente Villeda ADDENDUM: The patient is being discharged today on 09/07/2016 at 1:30 p.m. The patient is to be discharged home on continued prednisone at 80 mg daily. The patient had been on Cytoxan, which most likely contributing to bone marrow suppression and his anemia and this is now changed to CellCept per Dr. Garces's recommendation, and the patient is to follow up with Dr. Garces in 4 weeks. The patient has a hemoglobin that is above 8, that is after receiving 8 units of blood 2 days ago and hemoglobin and hematocrit have been stable since. The patient is also to follow up with Dr. Sow in 2 weeks for this as well. As far as managing his diabetes, we will discharge the patient on Levemir 25 daily and low dose sliding scale insulin. The patient was seen and educated by the diabetic education team for this as well. The patient is being discharged home, and he is to stay with his friend for the first few weeks. PHYSICAL EXAMINATION: GENERAL: The patient is awake, alert, and oriented x3. CHEST: Clear to auscultation bilaterally. ABDOMEN: Soft, nontender, nondistended. EXTREMITIES: Trace edema. DISPOSITION: Home. FOLLOWUP: Follow up with PCP, Nephrology, Dr. Garces and Dr. Sow in 2 to 4 weeks. Greater than 30 minutes were spent in discharge planning and facilitating. MD NADYA SUAZO/modl /[id number] d: 09/08/16 0341 t: 09/08/16 1823, DISCHARGE SUMMARY
[~2016-08-31 00:30] MED LIST changes: -CELLCEPT500 MG PO; -NORVASC5 MG PO
[2016-08-31 02:33] LABS: BILIRUBIN URINE NEGATIVE (NEGATIVE); BLOOD URINE 250 /UL (NEGATIVE); COLOR URINE YELLOW (YELLOW); GLUCOSE URINE 100 mg/dL (NEGATIVE); KETONE URINE NEGATIVE (NEGATIVE); LEUKOCYTES URINE NEGATIVE /UL (NEGATIVE); NITRITE URINE NEGATIVE (NEGATIVE); PROTEIN URINE 500 mg/dL (NEGATIVE); TURBIDITY URINE CLEAR (CLEAR); UROBILINOGEN URINE NORMAL (NORMAL)
[2016-08-31 02:42] LABS: BACTERIA URINE NEGATIVE (NEGATIVE); EPITHELIAL URINE 0-2 #/HPF (NEGATIVE); RBC URINE 50-100 #/HPF (NEGATIVE)
[2016-08-31 02:43] LABS: GRANULAR CASTS URINE RARE #/LPF (NEGATIVE); HYALINE CAST URINE 0-2 #/LPF (NEGATIVE)
[2016-08-31 03:37] LABS: HEMATOCRIT 21.9 % (37.0-53.0); HEMOGLOBIN 7.4 g/dL (11.0-16.0); MCH 30.8 pg (27.0-34.0); MCHC 33.8 gm/dL (32.0-36.5); MCV 91.3 fl (83.0-98.0); MPV 10.6 fl (9.4-12.4); PLATELET COUNT 82 K/uL (150-450); RDW-CV 16.7 % (11.9-14.6); WBC 11.7 K/uL (4.0-11.0)
[2016-08-31 03:42] LABS: PROTIME 10.4 SECONDS (9.6-11.1)
[2016-08-31 03:58] LABS: ALBUMIN 2.5 gm/dL (3.5-5.0); ANION GAP 12.5 (10.0-19.0); POTASSIUM 3.5 mMol/L (3.7-5.1); TOTAL BILIRUBIN 0.5 mg/dL (0.0-1.5)
[2016-08-31 04:00] LABS: CALCIUM 6.8 mg/dL (8.5-10.5); CREATININE 4.7 mg/dL (0.6-1.3); TOTAL PROTEIN 4.8 g/dL (6.0-8.4)
[2016-08-31 04:47] LABS: ABSOLUTE NEUTROPHIL CT (ANC) 11.4 K/uL (1.4-9.0); BANDED NEUTROPHIL # 1.6 K/uL (0.0-0.1); BANDED NEUTROPHILS % 14 %; LYMPHOCYTE # 0.2 K/uL (0.8-4.0); LYMPHOCYTE % 2 %; SEGMENTED NEUTROPHIL # 9.7 K/uL (1.4-9.0); SEGMENTED NEUTROPHIL % 83 %
[2016-08-31 17:46] LABS: HEMATOCRIT 22.2 % (37.0-53.0); MCH 31.1 pg (27.0-34.0); MCHC 33.3 gm/dL (32.0-36.5); MCV 93.3 fl (83.0-98.0); MPV 11.9 fl (9.4-12.4); PLATELET COUNT 84 K/uL (150-450); RBC 2.38 M/uL (3.50-5.50); RDW-CV 17.1 % (11.9-14.6); WBC 7.3 K/uL (4.0-11.0)
[2016-08-31 17:49] LABS: HEMOGLOBIN 7.4 g/dL (11.0-16.0)
[2016-08-31 18:03] LABS: CREATININE 3.4 mg/dL (0.6-1.3)
[2016-08-31 18:07] LABS: ANION GAP 13.9 (10.0-19.0); CALCIUM 6.6 mg/dL (8.5-10.5); POTASSIUM 4.9 mMol/L (3.7-5.1)
[2016-08-31 18:27] LABS: ABSOLUTE NEUTROPHIL CT (ANC) 6.9 K/uL (1.4-9.0); LYMPHOCYTE # 0.3 K/uL (0.8-4.0); LYMPHOCYTE % 4 %; MONOCYTE # 0.1 K/uL (0.0-1.0); SEGMENTED NEUTROPHIL # 6.9 K/uL (1.4-9.0); SEGMENTED NEUTROPHIL % 94 %
[2016-09-01 06:03] LABS: ANION GAP 12.1 (10.0-19.0); HEMATOCRIT 18.4 % (37.0-53.0); MCH 30.8 pg (27.0-34.0); MCHC 33.7 gm/dL (32.0-36.5); MCV 91.5 fl (83.0-98.0); MPV 10.8 fl (9.4-12.4); PLATELET COUNT 70 K/uL (150-450); POTASSIUM 4.1 mMol/L (3.7-5.1); RBC 2.01 M/uL (3.50-5.50); RDW-CV 16.8 % (11.9-14.6); WBC 6.6 K/uL (4.0-11.0)
[2016-09-01 06:05] LABS: HEMOGLOBIN 6.2 g/dL (11.0-16.0)
[2016-09-01 06:09] LABS: CALCIUM 6.4 mg/dL (8.5-10.5); CREATININE 4.4 mg/dL (0.6-1.3)
[2016-09-01 06:52] LABS: MCH 30.8 pg (27.0-34.0); MCHC 33.7 gm/dL (32.0-36.5); MCV 91.3 fl (83.0-98.0); MPV 10.6 fl (9.4-12.4); RBC 2.08 M/uL (3.50-5.50); RDW-CV 16.9 % (11.9-14.6); WBC 6.6 K/uL (4.0-11.0)
[2016-09-01 07:05] LABS: ANION GAP 12.1 (10.0-19.0); POTASSIUM 4.1 mMol/L (3.7-5.1)
[2016-09-01 07:09] LABS: CALCIUM 6.4 mg/dL (8.5-10.5); CREATININE 4.4 mg/dL (0.6-1.3)
[2016-09-01 07:38] LABS: HEMOGLOBIN 6.4 g/dL (11.0-16.0)
[2016-09-01 07:42] LABS: ABSOLUTE NEUTROPHIL CT (ANC) 6.3 K/uL (1.4-9.0); BANDED NEUTROPHIL # 0.3 K/uL (0.0-0.1); BANDED NEUTROPHILS % 5 %; LYMPHOCYTE # 0.1 K/uL (0.8-4.0); LYMPHOCYTE % 2 %; MONOCYTE # 0.2 K/uL (0.0-1.0); SEGMENTED NEUTROPHIL # 5.9 K/uL (1.4-9.0); SEGMENTED NEUTROPHIL % 90 %
[2016-09-01 14:46] LABS: HEMATOCRIT 22.4 % (37.0-53.0)
[2016-09-01 14:48] LABS: HEMOGLOBIN 7.5 g/dL (11.0-16.0)
[2016-09-01 16:45] LABS: ALBUMIN 2.3 gm/dL (3.5-5.0); TOTAL BILIRUBIN 0.6 mg/dL (0.0-1.5)
[2016-09-01 16:49] LABS: ANION GAP 18.1 (10.0-19.0); CALCIUM 6.2 mg/dL (8.5-10.5); POTASSIUM 5.1 mMol/L (3.7-5.1); TOTAL PROTEIN 4.7 g/dL (6.0-8.4)
[2016-09-02 06:14] LABS: ANION GAP 13.3 (10.0-19.0); POTASSIUM 4.3 mMol/L (3.7-5.1)
[2016-09-02 06:15] LABS: CALCIUM 6.3 mg/dL (8.5-10.5); CREATININE 5.4 mg/dL (0.6-1.3)
[2016-09-02 06:24] LABS: HEMATOCRIT 19.8 % (37.0-53.0); MCH 30.9 pg (27.0-34.0); MCHC 34.8 gm/dL (32.0-36.5); MCV 88.8 fl (83.0-98.0); MPV 11.8 fl (9.4-12.4); PLATELET COUNT 73 K/uL (150-450); RBC 2.23 M/uL (3.50-5.50); RDW-CV 16.4 % (11.9-14.6); WBC 7.1 K/uL (4.0-11.0)
[2016-09-02 06:28] LABS: HEMOGLOBIN 6.9 g/dL (11.0-16.0)
[2016-09-02 06:55] LABS: ABSOLUTE NEUTROPHIL CT (ANC) 6.5 K/uL (1.4-9.0); BANDED NEUTROPHIL # 0.1 K/uL (0.0-0.1); BANDED NEUTROPHILS % 2 %; LYMPHOCYTE # 0.1 K/uL (0.8-4.0); LYMPHOCYTE % 1 %; MONOCYTE # 0.4 K/uL (0.0-1.0); SEGMENTED NEUTROPHIL # 6.4 K/uL (1.4-9.0); SEGMENTED NEUTROPHIL % 90 %
[2016-09-02 12:06] LABS: HEMATOCRIT 20.6 % (37.0-53.0); MCH 30.9 pg (27.0-34.0); MCV 88.4 fl (83.0-98.0); MPV 11.3 fl (9.4-12.4); PLATELET COUNT 68 K/uL (150-450); RBC 2.33 M/uL (3.50-5.50); RDW-CV 16.7 % (11.9-14.6); WBC 7.1 K/uL (4.0-11.0)
[2016-09-02 12:09] LABS: HEMOGLOBIN 7.2 g/dL (11.0-16.0)
[2016-09-02 12:37] LABS: ABSOLUTE NEUTROPHIL CT (ANC) 6.5 K/uL (1.4-9.0); LYMPHOCYTE # 0.1 K/uL (0.8-4.0); LYMPHOCYTE % 2 %; MONOCYTE # 0.4 K/uL (0.0-1.0); SEGMENTED NEUTROPHIL # 6.5 K/uL (1.4-9.0); SEGMENTED NEUTROPHIL % 92 %
[2016-09-03 06:00] LABS: MCH 30.4 pg (27.0-34.0); MCHC 34.2 gm/dL (32.0-36.5); MCV 88.8 fl (83.0-98.0); MPV 11.5 fl (9.4-12.4); PLATELET COUNT 65 K/uL (150-450); RBC 2.14 M/uL (3.50-5.50); RDW-CV 16.3 % (11.9-14.6); WBC 6.3 K/uL (4.0-11.0)
[2016-09-03 06:03] LABS: HEMOGLOBIN 6.5 g/dL (11.0-16.0)
[2016-09-03 06:16] LABS: ALBUMIN 2.6 gm/dL (3.5-5.0); ANION GAP 12.4 (10.0-19.0); CREATININE 3.8 mg/dL (0.6-1.3); PHOSPHORUS 2.4 mg/dL (2.5-4.9); POTASSIUM 4.4 mMol/L (3.7-5.1)
[2016-09-03 06:17] LABS: CALCIUM 6.4 mg/dL (8.5-10.5)
[2016-09-03 06:40] LABS: ABSOLUTE NEUTROPHIL CT (ANC) 5.6 K/uL (1.4-9.0); BANDED NEUTROPHIL # 0.1 K/uL (0.0-0.1); BANDED NEUTROPHILS % 1 %; LYMPHOCYTE # 0.3 K/uL (0.8-4.0); LYMPHOCYTE % 5 %; MONOCYTE # 0.4 K/uL (0.0-1.0); SEGMENTED NEUTROPHIL # 5.5 K/uL (1.4-9.0); SEGMENTED NEUTROPHIL % 88 %
[2016-09-04 05:40] LABS: HEMATOCRIT 19.3 % (37.0-53.0); HEMOGLOBIN 6.9 g/dL (11.0-16.0); MCH 31.1 pg (27.0-34.0); MCHC 35.8 gm/dL (32.0-36.5); MCV 86.9 fl (83.0-98.0); MPV 12.1 fl (9.4-12.4); PLATELET COUNT 76 K/uL (150-450); RBC 2.22 M/uL (3.50-5.50); RDW-CV 16.1 % (11.9-14.6); WBC 5.8 K/uL (4.0-11.0)
[2016-09-04 06:06] LABS: ALBUMIN 2.6 gm/dL (3.5-5.0); ANION GAP 14.7 (10.0-19.0); PHOSPHORUS 2.7 mg/dL (2.5-4.9); POTASSIUM 4.7 mMol/L (3.7-5.1)
[2016-09-04 06:07] LABS: CALCIUM 6.7 mg/dL (8.5-10.5); CREATININE 4.7 mg/dL (0.6-1.3)
[2016-09-04 06:11] LABS: ABSOLUTE NEUTROPHIL CT (ANC) 5.4 K/uL (1.4-9.0); BANDED NEUTROPHIL # 0.1 K/uL (0.0-0.1); BANDED NEUTROPHILS % 1 %; LYMPHOCYTE # 0.2 K/uL (0.8-4.0); LYMPHOCYTE % 3 %; MONOCYTE # 0.2 K/uL (0.0-1.0); SEGMENTED NEUTROPHIL # 5.3 K/uL (1.4-9.0); SEGMENTED NEUTROPHIL % 92 %
[2016-09-05 05:52] LABS: HEMATOCRIT 19.9 % (37.0-53.0); MPV 12.1 fl (9.4-12.4); PLATELET COUNT 85 K/uL (150-450); RBC 2.16 M/uL (3.50-5.50); RDW-CV 16.4 % (11.9-14.6); WBC 6.7 K/uL (4.0-11.0)
[2016-09-05 05:56] LABS: HEMOGLOBIN 6.6 g/dL (11.0-16.0); MCH 30.6 pg (27.0-34.0); MCHC 33.2 gm/dL (32.0-36.5); MCV 92.1 fl (83.0-98.0)
[2016-09-05 06:02] LABS: ALBUMIN 2.4 gm/dL (3.5-5.0); ANION GAP 15.7 (10.0-19.0); CALCIUM 6.9 mg/dL (8.5-10.5); CREATININE 5.3 mg/dL (0.6-1.3); PHOSPHORUS 2.6 mg/dL (2.5-4.9); POTASSIUM 4.7 mMol/L (3.7-5.1)
[2016-09-05 06:38] LABS: BANDED NEUTROPHIL # 0.2 K/uL (0.0-0.1); BANDED NEUTROPHILS % 3 %; LYMPHOCYTE # 0.3 K/uL (0.8-4.0); LYMPHOCYTE % 4 %; MONOCYTE # 0.3 K/uL (0.0-1.0); SEGMENTED NEUTROPHIL # 5.8 K/uL (1.4-9.0); SEGMENTED NEUTROPHIL % 87 %
[2016-09-06 04:07] LABS: HEMOGLOBIN 8.3 g/dL (11.0-16.0); MCV 89.1 fl (83.0-98.0); MPV 11.4 fl (9.4-12.4); PLATELET COUNT 88 K/uL (150-450); RDW-CV 17.8 % (11.9-14.6); WBC 7.3 K/uL (4.0-11.0)
[2016-09-06 04:09] LABS: HEMATOCRIT 24.4 % (37.0-53.0); MCH 30.3 pg (27.0-34.0); RBC 2.74 M/uL (3.50-5.50)
[2016-09-06 04:23] LABS: ALBUMIN 2.4 gm/dL (3.5-5.0); ANION GAP 15.4 (10.0-19.0); CALCIUM 6.6 mg/dL (8.5-10.5); CREATININE 3.7 mg/dL (0.6-1.3); PHOSPHORUS 2.9 mg/dL (2.5-4.9); POTASSIUM 4.4 mMol/L (3.7-5.1)
[2016-09-06 05:06] LABS: ABSOLUTE NEUTROPHIL CT (ANC) 6.4 K/uL (1.4-9.0); BANDED NEUTROPHIL # 0.8 K/uL (0.0-0.1); BANDED NEUTROPHILS % 11 %; LYMPHOCYTE # 0.4 K/uL (0.8-4.0); LYMPHOCYTE % 5 %; MONOCYTE # 0.4 K/uL (0.0-1.0); SEGMENTED NEUTROPHIL # 5.6 K/uL (1.4-9.0); SEGMENTED NEUTROPHIL % 76 %
[2016-09-07 05:40] LABS: HEMATOCRIT 24.4 % (37.0-53.0); HEMOGLOBIN 8.3 g/dL (11.0-16.0); MCH 30.3 pg (27.0-34.0); MCV 89.1 fl (83.0-98.0); MPV 10.8 fl (9.4-12.4); PLATELET COUNT 94 K/uL (150-450); RBC 2.74 M/uL (3.50-5.50); RDW-CV 17.9 % (11.9-14.6); WBC 6.7 K/uL (4.0-11.0)
[2016-09-07 05:53] LABS: ALBUMIN 2.4 gm/dL (3.5-5.0); ANION GAP 16.5 (10.0-19.0); CALCIUM 6.9 mg/dL (8.5-10.5); CREATININE 4.5 mg/dL (0.6-1.3); MAGNESIUM 1.8 mg/dL (1.3-2.6); POTASSIUM 4.5 mMol/L (3.7-5.1)
[2016-09-07 06:15] LABS: ABSOLUTE NEUTROPHIL CT (ANC) 5.8 K/uL (1.4-9.0); BANDED NEUTROPHIL # 0.1 K/uL (0.0-0.1); BANDED NEUTROPHILS % 2 %; LYMPHOCYTE # 0.1 K/uL (0.8-4.0); LYMPHOCYTE % 2 %; MONOCYTE # 0.4 K/uL (0.0-1.0); SEGMENTED NEUTROPHIL # 5.7 K/uL (1.4-9.0); SEGMENTED NEUTROPHIL % 85 %
[2016-09-07] MEDS ORDERED: CELLCEPT500 MG PO (14:44)
[2016-09-07] MEDS ORDERED: NORVASC5 MG PO (14:59)
== END 2016-09-07 15:35 | disposition disaster alternative care site (69) | DRG 638 ==
LOC: GPCU 00:30
PROVIDERS: Internal Medicine; Internal Medicine Cardiovascular Disease; Internal Medicine Hematology & Oncology; Internal Medicine Nephrology; ADMIT Internal Medicine
PROC: B246ZZZ Ultrasonography of Right and Left Heart (ICD-10-PCS; principal; 2016-09-01)
PROC: 30233N1 Transfusion of Nonautologous Red Blood Cells into Peripheral Vein, Percutaneous Approach (ICD-10-PCS; principal; 2016-09-01)
DX: E11.649 Type 2 diabetes mellitus with hypoglycemia without coma (principal); D61.9 Aplastic anemia, unspecified; I12.0 Hypertensive chronic kidney disease with stage 5 chronic kidney disease or end stage renal disease; N18.6 End stage renal disease; N17.9 Acute kidney failure, unspecified; D62 Acute posthemorrhagic anemia; E11.22 Type 2 diabetes mellitus with diabetic chronic kidney disease; M32.9 Systemic lupus erythematosus, unspecified; H91.90 Unspecified hearing loss, unspecified ear; Z23 Encounter for immunization
CPT/HCPCS: A9500; C1751; G0008; J0360; J1610; J1644; J2785; J7050; J7512; J7517; P9016; P9047; Q4081

== ENCOUNTER → 2016-10-06 | Outpatient (CLI) | payer MEDICARE ==
[~2016-10-06] MED LIST changes: +CELLCEPT500 MG PO; +NORVASC5 MG PO
== END ==
LOC: LGSMG 14:34
DX: N17.9 Acute kidney failure, unspecified (principal); N18.9 Chronic kidney disease, unspecified; I10 Essential (primary) hypertension; E11.21 Type 2 diabetes mellitus with diabetic nephropathy; M32.14 Glomerular disease in systemic lupus erythematosus